=== PATIENT | female | born 1960 | race Caucasian/White ===

== ENCOUNTER → 2019-07-03 12:42 | Outpatient (BNVA) | payer MEDICARE, SELFPAY | PROVIDERS: Family Provider Family Medicine; PCP Family Medicine; Visit Provider Internal Medicine Rheumatology | DX: M45.9 Ankylosing spondylitis of unspecified sites in spine (principal); Z79.899 Other long term (current) drug therapy; M17.9 Osteoarthritis of knee, unspecified; M46.1 Sacroiliitis, not elsewhere classified | CPT/HCPCS: 99214 ==

== ENCOUNTER → 2019-10-03 13:16 | Outpatient (BNVA) | payer MEDICARE, SELFPAY | PROVIDERS: Family Provider Family Medicine; PCP Family Medicine; Visit Provider Internal Medicine Rheumatology | DX: M45.0 Ankylosing spondylitis of multiple sites in spine (principal); Z79.899 Other long term (current) drug therapy; M17.0 Bilateral primary osteoarthritis of knee; M46.1 Sacroiliitis, not elsewhere classified | CPT/HCPCS: 36415; 80076; 82565; 85025; 85651; 86140; 99214 ==

== ENCOUNTER 2019-10-11 09:36 | Outpatient (CLI) | payer MEDICARE, SELFPAY ==
--- NOTE | 2019-10-11 09:45 | XR_ITS ---
WS: [id number] XR KUB 10136 REASON FOR EXAM: RENAL CALCULUS FINDINGS: Considerable fecal stasis identified throughout the colon. The renal shadows are poorly see n no definite stones were seen. There is no definite stones in the area of the ureters. The urinary bladder area show no abnormalities. XR/XR KUB 58639 IMPRESSION: Marked fecal stasis No radiographic evidence of calculi.
== END 2019-10-11 09:37 | disposition home or self-care (01) ==
LOC: RAD 09:42
PROVIDERS: PCP Family Medicine; Visit Provider Urology
DX: N20.0 Calculus of kidney (principal)
CPT/HCPCS: 74018

== ENCOUNTER 2019-11-16 19:42 | Emergency (ER) | payer MEDICARE, SELFPAY ==
[2019-11-16 19:51] VITALS: BP 194/97; PULSE 76; RESP 14; TEMP 36.2; O2SAT 98; BMI 24.4
--- NOTE | 2019-11-16 19:57 | ED_ITS ---
HPI - Headache General: Chief Complaint: Headache Stated Complaint: n/v; h/a Time Seen by Provider: 11/16/19 19:57 Source: patient Mode of arrival: ambulatory Limitations: no limitations History of Present Illness: HPI Narrative: Patient comes in with onset of headache approximately 2 hours ago followed by persistent nausea and vomiting. Patient has a history of migraines which this is similar to. Patient appears mildly unwell. Patient appears in mild to moderate pain. Associated symptoms: Reports nausea and vomiting Review of Systems General: Reports: 10 or more systems reviewed and unremarkable except in HPI a nd below GI: Reports: nausea, vomiting and other (Bile in vomit) Neuro: Reports: headache(s) PFSH ED PFSH: Medical History (Updated 11/16/19 @ 22:21 by NARA Noe) Ankylosing spondylitis Arthritis of knee Breast cancer 2008 Chronic cystitis Diabetes H/O renal calculi High risk medication use Immunization counseling Osteoarthritis Urolithiasis Surgical History H/O mastectomy H/O repair of left rotator cuff History of cholecystectomy History of extraction of renal calculus Previous section Family History Other Ankylosing spondylitis Diabetes Hypertension Lupus Rheumatoid arthritis Stroke Social History Smoking and tobacco status: never smoked Alcohol intake: never Adopted: No Caregiver/support person: No Lives independently: No Household members: spouse Marital status: Current occupational status: retired History of recent travel: No Current gender identity: Female Physical Exam Const: COMMON NORMALS: no acute distress and patient oriented x3 GENERAL A PPEARANCE: cooperative HENMT: COMMON NORMALS: normocephalic and Normal external nose present HEAD & SCALP: normal to inspection and normocephalic NOSE: Normal external nose present Eye: GENERAL EYE: appearance normal, both eyes and all related structures Neck/C-Spine: COMMON NORMALS: full ROM Chest: COMMONS NORMALS: normal inspection of the chest Resp: COMMON NORMALS: normal respiratory effort EFFORT & INSPECTION: Yes able to speak in complete sentences Cardio: COMMON NORMALS: regular rate and regular rhythm RATE: regular rate RHYTHM: regular rhythm GI: COMMON NORMALS: non-tender Back/Pelvis: COMMON NORMALS: thoracic and lumbar spine normal to inspection Extremity: COMMON NORMALS: normal to inspection Neuro: COMMON NORMALS: patient oriented x3 and moves all extremities Psych: COMMON NORMALS: mental status grossly normal and cooperative Skin: COMMON NORMALS: no rashes or lesions noted GENERAL SKIN EXAM: no rashes or lesions noted Course ED course: 2044, patient reports much improvement of symptoms, resting well, IVF continue will reassess when fluids are complete, plan to d/c after fluid bolus. wjw Vital Signs: Vital signs: Vital Signs Temperature 97.2 F L 11/16/19 19:51 Pulse Rate 76 11/16/19 19:51 Respiratory Rate 14 11/16/19 19:51 Blood Pressure 194/97 11/16/19 19:51 Pulse Oximetry 98 11/16/19 19:51 MDM - Headache MDM Narrative: Medical decision making narrative: Patient comes in today for complaints of headache with nausea and vomiting. Patient reports history of migraines with similar symptoms. Exam notes patient appears mildly unwell. Patient does have bilious vomit. Vital signs are normal except for elevated blood pressure. Differential diagnosis includes but not limited to dehydration, migraine headache, electrolyte imbalance, gastritis. Laboratory values noted white count of 11,000, creatinine was 1.3, potassium was 2.8, glucose was 270. Patient was hydrated with 1 L of IV fluids, given 40 mEq of potassium p.o., and medicated with Reglan 10 mg IV push and 25 mg of Benadryl IV push. Patient had improvement in headache and was monitored to ensure that p.o. potassium stayed down. Patient reports understanding of care plan and need for follow-up or return to the emergency room for worsening symptoms. Lab Data: Labs: Lab Results 11/16/19 11/16/19 Range/Units 20:00 20:00 WBC 11.2 H (4.0-10.0) 10^3/ uL RBC 4.90 (4.1-5.3) 10^6/u L Hgb 14.7 (11.5-15.3) g/dL Hct 44.2 (37.0-47.0) % MCV 90.2 (81-99) fL MCH 30.0 (28.0-34.0) pg MCHC 33.3 (30.0-36.0) g/dL RDW 12.6 (12.1-15.1) % Plt Count 334 (130-400) 10^3/c mm MPV 10.5 H (7.4-10.4) fL Neut % (Auto) 48.9 % Lymph % (Auto) 40.9 % [place] % (Auto) 7.8 % Eos % (Auto) 1.7 % Baso % (Auto) 0.4 % Neut # (Auto) 5.48 (1.8-7.7) 10^3/u L Lymph # (Auto) 4.6 (0.8-4.8) 10^3/u L [place] # (Auto) 0.9 (0.2-0.9) 10^3/u L Eos # (Auto) 0.2 (0.0-0.8) 10^3/u L Baso # (Auto) 0.1 (0.0-0.1) 10^3/u L Nucleated RBC % (a uto) 0 % Nucleated RBCs # 0.0 /100WBC Sodium 140 (136-145) mmol/L Potassium 2.8 L* (3.5-5.1) mmol/L Chloride 93 L (98-107) mmol/L Carbon Dioxide 26 (22-29) mmol/L Anion Gap 23.8 H (5-19) BUN 8 (8-23) mg/dL Creatinine 1.3 H (0.5-0.9) mg/dL GFR Calculation 41.6 L (90-130) mL/min Glucose 272 H (65-115) mg/dL Calculated Osmolal ity 296 H (285-295) mOsm/k g Calcium 10.5 (8.5-10.5) mg/dL Total Bilirubin 0.6 (0.15-1.2) mg/dL AST 48 H (0-32) U/L ALT 28 (0-33) U/L Alkaline Phosphata se 65 (35-105) IU/L Total Protein 8.7 (6.6-8.7) g/dL Albumin 5.1 (3.5-5.2) g/dL Globulin 3.6 (1.3-4.6) g/dL Discharge Plan Discharge Patient Disposition: Home, Self-Care Clinical Impression: Acute dehydration, Hypokalemia Migraine Qualifiers: Migraine type: unspecified Status migrainosus presence: without status migrainosus Intractability: not intractable Qualified Code(s): G43.909 - Migraine, unspecified, not intractable, without status migrainosus Condition: Stable Prescriptions: No Action cholecalciferol (vitamin D3) 2,000 unit tablet 2,000 unit PO DAILY RF: 0 melatonin 10 mg capsule 10 mg PO DAILY RF: 0 fluticasone propionate [Flonase Allergy Relief] 50 mcg/actuation spray,suspension 1 spray INTRANASAL DAILY RF: 0 fexofenadine-pseudoephedrine [Ariane-D 12 Hour] 60-120 mg tablet extended release 12 hr 1 tab PO Q12H PRNRF: 0 escitalopram oxalate 10 mg tablet 10 mg PO DAILY RF: 0 multivitamin Capsule 1 cap PO DAILY RF: 0 hydrocodone-acetaminophen 10-325 mg tablet 1 tab PO BID PRNRF: 0 fentanyl 75 mcg/hr patch 72 hour 1 patch TRANSDERMA Q72H RF: 0 levothyroxine 112 mcg tablet 112 mcg PO DAILY RF: 0 metformin 1,000 mg tablet 1,000 mg PO BID RF: 0 ondansetron HCl 8 mg tablet 8 mg PO Q8H RF: 0 metoprolol tartrate 25 mg tablet 25 mg PO BID RF: 0 tizanidine 4 mg tablet 4 mg PO .@night RF: 0 Enbrel SureClick 50 mg/mL (1 mL) pen injector 50 mg SUBCUT .Q7days RF: 0 Ozempic 0.25 mg or 0.5 mg(2 mg/1.5 mL) pen injector 0.25 mg SUBCUT RF: 0 nitrofurantoin monohyd/m-cryst [Macrobid] 100 mg capsule 100 mg PO BID Qty: 28 RF: 3 Discharge Orders: Discharge Order (Routine); Ordered 11/16/19 Ordered By: Marc Abarca Referrals: Felton Newsome MD [Primary Care Provider] - Discharge Diet: Usual diet Discharge Activity: Increase activity as tolerated Patient Instructions: Headache - Migraine (Adult) Activity Restrictions/Additional Instructions: Drink plenty of fluids. Continue with routine medications as directed. Follow- up with primary care for reevaluation for abortive treatment for migraines. Return to the ER as needed. Coding Level of Care Code ED Ship Engineer for Chg Fwd Exam Comprehensive
[2019-11-16 20:14] LABS: Basophils # 0.1 10^3/uL (0.0-0.1); Basophils % 0.4 %; Eosinophils # 0.2 10^3/uL (0.0-0.8); Eosinophils % 1.7 %; Hematocrit 44.2 % (37.0-47.0); Hemoglobin 14.7 g/dL (11.5-15.3); Lymphocytes # 4.6 10^3/uL (0.8-4.8); Lymphocytes % 40.9 %; Mean Corpuscular HGB Conc 33.3 g/dL (30.0-36.0); Mean Corpuscular Volume 90.2 fL (81-99); Mean Platelet Volume 10.5 fL (7.4-10.4); Monocytes # 0.9 10^3/uL (0.2-0.9); Monocytes % 7.8 %; Neutrophils # 5.48 10^3/uL (1.8-7.7); Neutrophils % 48.9 %; Nucleated Red Blood Cells % 0 %; Platelet Count 334 10^3/cmm (130-400); Red Cell Distribution Width 12.6 % (12.1-15.1); White Blood Count 11.2 10^3/uL (4.0-10.0)
[2019-11-16] MEDS: sodium chloride 0.9% 1,000 ML 999 ML IV (20:20)
[2019-11-16] MEDS: dexamethasone 4 mg/mL INJ IVP (20:22)
[2019-11-16] MEDS: metoclopramide 5 mg/mL SDV 2 mL 10 MG IVP (20:27)
[2019-11-16] MEDS: diphenhydrAMINE 50 mg/mL SDV 1mL 25 MG IVP (20:30)
[2019-11-16 20:35] LABS: Alanine Aminotransferase 28 U/L (0-33); Albumin Level 5.1 g/dL (3.5-5.2); Alkaline Phosphatase 65 IU/L (35-105); Anion Gap 23.8 (5-19); Aspartate Amino Transferase 48 U/L (0-32); Blood Urea Nitrogen 8 mg/dL (8-23); Calcium 10.5 mg/dL (8.5-10.5); Carbon Dioxide 26 mmol/L (22-29); Chloride 93 mmol/L (98-107); Globulin 3.6 g/dL (1.3-4.6); Glomerular Filtration Rate 41.6 mL/min (90-130); Glucose 272 mg/dL (65-115); Osmolality Calculated 296 mOsm/kg (285-295); Sodium 140 mmol/L (136-145); Total Bilirubin 0.6 mg/dL (0.15-1.2); Total Protein 8.7 g/dL (6.6-8.7)
[2019-11-16 21:05] LABS: Potassium 2.8 mmol/L (3.5-5.1)
[2019-11-16 21:21] VITALS: BP 178/85; PULSE 82; RESP 18; O2SAT 96
[2019-11-16] MEDS: potassium chloride ER 10 mEq Tablet 40 MEQ PO (21:33)
[2019-11-16] MEDS: ondansetron 2 mg/ML SDV 2 mL 4 MG IVP (21:51)
[2019-11-16 22:38] VITALS: BP 157/78; PULSE 77; RESP 18; O2SAT 97
== END 2019-11-16 22:40 | disposition home or self-care (01) ==
PROVIDERS: Emergency Provider Nurse Practitioner Family; PCP Family Medicine
DX: G43.909 Migraine, unspecified, not intractable, without status migrainosus (principal); E86.0 Dehydration; E87.6 Hypokalemia; Z85.3 Personal history of malignant neoplasm of breast; E11.9 Type 2 diabetes mellitus without complications; Z79.84 Long term (current) use of oral hypoglycemic drugs
CPT/HCPCS: 12345; 80053; 85025; 96361; 96374; 96375; 99283; J1100; J1200; J2405; J2765; J7030

== ENCOUNTER 2019-12-15 13:05 | Emergency (ER) | payer MEDICARE, SELFPAY ==
[2019-12-15 13:09] VITALS: BMI 24.0
[2019-12-15 13:15] VITALS: BP 110/59; PULSE 75; RESP 18; TEMP 36.1; O2SAT 100
--- NOTE | 2019-12-15 13:15 | ECG_ITS ---
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 Measurements Intervals [place] Rate: 72 P: 5 CA: 150 QRS: -7 QRSD: 102 T: 28 QT: 411 QTc: 451 Interpretive Statements SINUS RHYTHM INFERIOR MYOCARDIAL INFARCTION , PROBABLY OLD Compared to ECG 10/24/2015 10:54:44 Myocardial infarct finding now present T-wave abnormality no longer present Electronically Signed On 12-15-2019 13:58:03 CDT by Rebekah Rich M.D. [id number]
--- NOTE | 2019-12-15 13:16 | W.ED.DIZZY ---
HPI - Dizziness General: Chief Complaint: Dizziness Stated Complaint: low bp/dizzy Time Seen by Provider: 12/15/19 13:09 Source: patient Mode of arrival: ambulatory Limitations: no limitations History of Present Illness: HPI Narrative: 59-year-old female who states she is been having issues with her blood pressure for months. She states she is feeling lightheaded today and had a near syncopal event. She states she tried taking her blood pressure at home and it would not register on her machine so she was concerned it was low. Patient's blood pressure here is 110/59. States she has had generalized weakness. She denies any fever or cough. MD elicited complaint: lightheadedness and near syncope Onset (ago): hour(s) Timing: gradual onset Severity: moderate Associated symptoms: Denies chills, nausea or vomiting Review of Systems Const: Denies: fever(s), chills, body aches or change in appetite Eyes: Denies: blurry vision or eye discomfort ENMT: Denies: throat pain or dental pain Card: Reports: pre-syncope Resp: Denies: dyspnea GI: Denies: abdominal pain, nausea, vomiting or diarrhea : Denies: dysuria Musc: Denies: neck pain or back pain Skin/Breast: Denies: rash Neuro: Reports: weakness in extremities Psych: Denies: depression [place]/Lymph: Denies: easy bruising All/Imm: Denies: urticaria PFSH ED PFSH: Medical History Ankylosing spondylitis Arthritis of knee Breast cancer 2007 Chronic cystitis Diabetes H/O renal calculi High risk medication use Immunization counseling Osteoarthritis Urolithiasis Surgical History H/O mastectomy H/O repair of left rotator cuff History of cholecystectomy History of extraction of renal calculus Previous section Family History Other Ankylosing spondylitis Diabetes Hypertension Lupus Rheumatoid arthritis Stroke Social History Smoking and tobacco status: never smoked Alcohol intake: never Adopted: No Caregiver/support person: No Lives independently: No Household members: spouse Marital status: Current occupational status: retired History of recent travel: No Current gender identity: Female Physical Exam Const: COMMON NORMALS: no acute distress, patient oriented x3 and healthy appearing HENMT: COMMON NORMALS: normocephalic and atraumatic HEAD & SCALP: normocephalic and atraumatic Eye: COMMON NORMALS: Equal, round and reactive pupils present and EOMs intact bilaterally PUPIL: Yes Equal, round and reactive pupils present Neck/C-Spine: COMMON NORMALS: full ROM and supple Chest: COMMONS NORMALS: normal inspection of the chest and normal palpation of entire chest wall Resp: COMMON NORMALS: normal respiratory effort, No retractions, No use of accessory muscles and clear to auscultation bilaterally AUSCULTATION: clear to auscultation bilaterally Cardio: COMMON NORMALS: regular rate, regular rhythm and No murmurs present (Cardio) RATE: regular rate RHYTHM: regular rhythm GI: COMMON NORMALS: Normal to inspection, nondistended, normoactive bowel sounds present, Soft to palpation, non-tender and no masses PALPATION: Yes Soft to palpation Extremity: COMMON NORMALS: normal to inspection and full ROM Neuro: COMMON NORMALS: patient oriented x3, moves all extremities and no focal motor deficits Psych: COMMON NORMALS: mental status grossly normal, Normal thought process present and cooperative THOUGHT PROCESS: Normal thought process present Skin: COMMON NORMALS: no rashes or lesions noted and no wounds GENERAL SKIN EXAM: no rashes or lesions noted Course Vital Signs: Vital signs: Vital Signs Temperature 97.9 F 12/15/19 15:28 Pulse Rate 64 12/15/19 15:28 Respiratory Rate 18 12/15/19 15:28 Blood Pressure 139/78 12/15/19 15:28 Pulse Oximetry 97 12/15/19 15:28 MDM - Dizziness Lab Data: Labs: Lab Results 12/15/19 12/15/19 12/15/19 Range/Units 13:40 13:40 13:40 WBC 6.3 (4.0-10.0) 10^3/ uL RBC 4.14 (4.1-5.3) 10^6/u L Hgb 12.0 (11.5-15.3) g/dL Hct 37.8 (37.0-47.0) % MCV 91.3 (81-99) fL MCH 29.0 (28.0-34.0) pg MCHC 31.7 (30.0-36.0) g/dL RDW 12.6 (12.1-15.1) % Plt Count 259 (130-400) 10^3/c mm MPV 10.6 H (7.4-10.4) fL Neut % (Auto) 36.6 % Lymph % (Auto) 48.3 % [place] % (Auto) 10.5 % Eos % (Auto) 3.8 % Baso % (Auto) 0.6 % Neut # (Auto) 2.31 (1.8-7.7) 10^3/u L Lymph # (Auto) 3.0 (0.8-4.8) 10^3/u L [place] # (Auto) 0.7 (0.2-0.9) 10^3/u L Eos # (Auto) 0.2 (0.0-0.8) 10^3/u L Baso # (Auto) 0.0 (0.0-0.1) 10^3/u L Nucleated RBC % (a uto) 0 % Nucleated RBCs # 0.0 /100WBC Sodium 138 (136-145) mmol/L Potassium 3.3 L (3.5-5.1) mmol/L Chloride 98 (98-107) mmol/L Carbon Dioxide 29 (22-29) mmol/L Anion Gap 14.3 (5-19) BUN 6 L (8-23) mg/dL Creatinine 1.2 H (0.5-0.9) mg/dL GFR Calculation 45.7 L (90-130) mL/min Glucose 269 H (65-115) mg/dL Calculated Osmolal ity 291 (285-295) mOsm/k g Calcium 9.5 (8.5-10.5) mg/dL Total Bilirubin 0.4 (0.15-1.2) mg/dL AST 23 (0-32) U/L ALT 13 (0-33) U/L Alkaline Phosphata se 48 (35-105) IU/L Troponin T Baselin e 7 (0-10) ng/L Total Protein 6.9 (6.6-8.7) g/dL Albumin 4.3 (3.5-5.2) g/dL Globulin 2.6 (1.3-4.6) g/dL Imaging Data^: CXR: Radiologist's impression: [address] [address] XRay Report Signed Patient: Yuliya Khan Unit #: [id number] : 1960 Age/Sex: 59 / F ADM Date: 12/15/19 Loc: ER Room/Bed: Attending Dr: Ordering Provider/Ordering MD: Svetlana Quezada MD Date of Service: 12/15/19 Procedure(s): XR chest 1V portable [id number] Accession Number(s): [id number] Report Number: [id number] PROCEDURE INFORMATION: Exam: XR Chest, 1 View Exam date and time: 12/15/2019 1:16 PM Age: 59 years old Clinical indication: Other: Abnormal blood pressure; Prior surgery; Surgery date: 6+ months; Surgery type: Mastectomy; Patient HX: History of breast cancer; Additional info: Cp TECHNIQUE: Imaging protocol: XR of the chest Views: 1 view. COMPARISON: CR Chest 2 views* [id number] 11/18/2017 12:22 PM FINDINGS: Lungs: Unremarkable. No consolidation. Pleural space: Unremarkable. No pleural effusion. No pneumothorax. Heart/Mediastinum: Unremarkable. No cardiomegaly. Bones/joints: Unremarkable. Soft tissues: Status post left mastectomy Other findings: No interval changes are seen compared to prior XR/XR chest 1V portable [id number] IMPRESSION: 1. No acute findings. 2. Status post left mastectomy EKG Data^: EKG 1: Attestation: I personally reviewed and interpreted this EKG as follows: EKG interpretation date: 12/15/19 EKG interpretation time: 13:45 Interpretation: nsr hr [address] or t wave abnormalities qrs 102 qtc 435 EKG 2: Attestation: I personally reviewed and interpreted this EKG as follows: EKG interpretation date: 12/15/19 EKG interpretation time: 14:57 Interpretation: nsr hr [address] or t wave abnormalites qrs 104 qtc 457 patient presents with near syncope along with hypotension. I believe her blood pressure cuff at home is malfunctioning as her blood pressures here have all been normal. Her lab work including a troponin is normal. She has no signs of cardiac cause or pulmonary embolism. Patient is to continue to monitor her blood pressure at home and is to follow-up with primary care doctor in 3 to 5 days. She is to return if worsening. She understands and agrees to plan. Discharge Plan Discharge Patient Disposition: Home Clinical Impression: Near syncope Condition: Stable Prescriptions: No Action cholecalciferol (vitamin D3) 2,000 unit tablet 2,000 unit PO DAILY RF: 0 melatonin 10 mg capsule 10 mg PO DAILY RF: 0 fluticasone propionate [Flonase Allergy Relief] 50 mcg/actuation spray,suspension 1 spray INTRANASAL DAILY RF: 0 fexofenadine-pseudoephedrine [Ariane-D 12 Hour] 60-120 mg tablet extended release 12 hr 1 tab PO Q12H PRN (Reason: Allergy Symptoms) RF: 0 escitalopram oxalate 10 mg tablet 10 mg PO DAILY RF: 0 multivitamin Capsule 1 cap PO DAILY RF: 0 hydrocodone-acetaminophen 10-325 mg tablet 1 tab PO BID PRN (Reason: Pain) RF: 0 fentanyl 75 mcg/hr patch 72 hour 1 patch TRANSDERMA Q72H RF: 0 levothyroxine 112 mcg tablet 112 mcg PO DAILY RF: 0 metformin 1,000 mg tablet 1,000 mg PO BID RF: 0 ondansetron HCl 8 mg tablet 8 mg PO Q8H RF: 0 metoprolol tartrate 25 mg tablet 12.5 mg PO TID RF: 0 tizanidine 4 mg tablet 4 mg PO .@night RF: 0 Enbrel SureClick 50 mg/mL (1 mL) pen injector 50 mg SUBCUT .Q7days RF: 0 Ozempic 0.25 mg or 0.5 mg(2 mg/1.5 mL) pen injector 0.5 mg SUBCUT Q7D RF: 0 nitrofurantoin monohyd/m-cryst [Macrobid] 100 mg capsule 100 mg PO BID Qty: 28 RF: 3 Discharge Orders: Discharge Order (Routine); Ordered 12/15/19 Ordered By: Svetlana Quezada Referrals: Felton Newsome MD [Primary Care Provider] - 1-3 days Discharge Diet: Advance as tolerated Discharge Activity: Resume usual activity Patient Instructions: Near Syncope (ED) Discharge Date/Time: 12/15/19 15:31 Coding Level of Care Code ED Railway Station Manager for Chg Fwd Exam Comprehensive
[2019-12-15 13:40] VITALS: BP 115/65; PULSE 82; RESP 16; O2SAT 100
[2019-12-15] MEDS: sodium chloride 0.9% 1,000 ML 999 ML IV (13:44)
[2019-12-15 13:59] LABS: Basophils % 0.6 %; Eosinophils # 0.2 10^3/uL (0.0-0.8); Eosinophils % 3.8 %; Hematocrit 37.8 % (37.0-47.0); Lymphocytes % 48.3 %; Mean Corpuscular HGB Conc 31.7 g/dL (30.0-36.0); Mean Corpuscular Volume 91.3 fL (81-99); Mean Platelet Volume 10.6 fL (7.4-10.4); Monocytes # 0.7 10^3/uL (0.2-0.9); Monocytes % 10.5 %; Neutrophils # 2.31 10^3/uL (1.8-7.7); Neutrophils % 36.6 %; Nucleated Red Blood Cells % 0 %; Platelet Count 259 10^3/cmm (130-400); Red Blood Count 4.14 10^6/uL (4.1-5.3); Red Cell Distribution Width 12.6 % (12.1-15.1); White Blood Count 6.3 10^3/uL (4.0-10.0)
[2019-12-15 14:22] LABS: Alanine Aminotransferase 13 U/L (0-33); Albumin Level 4.3 g/dL (3.5-5.2); Alkaline Phosphatase 48 IU/L (35-105); Anion Gap 14.3 (5-19); Aspartate Amino Transferase 23 U/L (0-32); Blood Urea Nitrogen 6 mg/dL (8-23); Calcium 9.5 mg/dL (8.5-10.5); Carbon Dioxide 29 mmol/L (22-29); Chloride 98 mmol/L (98-107); Globulin 2.6 g/dL (1.3-4.6); Glomerular Filtration Rate 45.7 mL/min (90-130); Glucose 269 mg/dL (65-115); Osmolality Calculated 291 mOsm/kg (285-295); Potassium 3.3 mmol/L (3.5-5.1); Sodium 138 mmol/L (136-145); Total Bilirubin 0.4 mg/dL (0.15-1.2); Total Protein 6.9 g/dL (6.6-8.7)
[2019-12-15 14:24] LABS: Troponin(5th) Baseline 7 ng/L (0-10)
--- NOTE | 2019-12-15 15:15 | ECG_ITS ---
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 Measurements Intervals [place] Rate: 64 P: 26 CT: 194 QRS: -10 QRSD: 104 T: 29 QT: 447 QTc: 464 Interpretive Statements SINUS RHYTHM INFERIOR MYOCARDIAL INFARCTION , PROBABLY OLD [40+ ms Q WAVE AND/OR ST/T ABNORMALITY IN II/aVF] Compared to ECG 12/15/2019 13:43:59 No significant changes Electronically Signed On 12-16-2019 9:09:23 CDT by Rebekah Rich M.D. [id number]
[2019-12-15 15:28] VITALS: BP 139/78; PULSE 64; RESP 18; TEMP 36.6; O2SAT 97
== END 2019-12-15 15:31 | disposition home or self-care (01) ==
PROVIDERS: Emergency Provider Emergency Medicine; PCP Family Medicine
DX: R55 Syncope and collapse (principal); Z85.3 Personal history of malignant neoplasm of breast; E11.9 Type 2 diabetes mellitus without complications
CPT/HCPCS: 12345; 71045; 80053; 84484; 85025; 93005; 96360; 99283; 99284; J7030

== ENCOUNTER → 2020-02-20 10:17 | Outpatient (BNVA) | payer MEDICARE, SELFPAY | PROVIDERS: PCP Family Medicine; Referring Provider Internal Medicine Rheumatology; Visit Provider Internal Medicine Rheumatology | DX: M45.0 Ankylosing spondylitis of multiple sites in spine (principal); M17.0 Bilateral primary osteoarthritis of knee; Z79.899 Other long term (current) drug therapy; Z79.891 Long term (current) use of opiate analgesic | CPT/HCPCS: 99214 ==

== ENCOUNTER 2020-04-10 09:14 | Outpatient (CLI) | payer MEDICARE, SELFPAY ==
--- NOTE | 2020-04-10 09:37 | XR_ITS ---
WS: [id number] KUB, 04/10/2020 Clinical Data: UROLITHIASIS Comparison: KUB, 10/11/2019. Findings: No abnormal intraabdominal masses or calcifications are seen. There is no dilatated small bowel or ev idence of obstruction. The changes of ankylosing spondylitis of the lumbar spine and SI joints can be seen. There is moderat e fecal material throughout the colon. XR/XR KUB [id number] Impression: Negative KUB.
== END 2020-04-10 09:15 | disposition home or self-care (01) ==
PROVIDERS: PCP Family Medicine; Visit Provider Urology
DX: N20.9 Urinary calculus, unspecified (principal)
CPT/HCPCS: 74018; 81003

== ENCOUNTER → 2020-07-03 13:48 | Outpatient (BNVA) | payer MEDICARE, SELFPAY | PROVIDERS: PCP Family Medicine; Visit Provider Internal Medicine Rheumatology | DX: M45.0 Ankylosing spondylitis of multiple sites in spine (principal); Z79.899 Other long term (current) drug therapy; M19.90 Unspecified osteoarthritis, unspecified site | CPT/HCPCS: 36415; 80076; 82565; 85025; 86140 ==

== ENCOUNTER → 2020-10-01 14:20 | Outpatient (BNVA) | payer MEDICARE, SELFPAY | PROVIDERS: PCP Family Medicine; Visit Provider Internal Medicine Rheumatology | DX: M45.0 Ankylosing spondylitis of multiple sites in spine (principal); Z79.899 Other long term (current) drug therapy; M17.0 Bilateral primary osteoarthritis of knee; Z79.891 Long term (current) use of opiate analgesic | CPT/HCPCS: 36415; 80076; 82565; 85025; 86140; 99214 ==

== ENCOUNTER → 2021-01-05 12:58 | Outpatient (BNVA) | payer MEDICARE, SELFPAY | PROVIDERS: PCP Family Medicine; Visit Provider Internal Medicine Rheumatology | DX: Z79.899 Other long term (current) drug therapy (principal); M45.0 Ankylosing spondylitis of multiple sites in spine | CPT/HCPCS: 36415; 80076; 82565; 85025; 86140 ==

== ENCOUNTER → 2021-01-15 13:55 | Outpatient (BNVA) | payer MEDICARE, SELFPAY | PROVIDERS: PCP Family Medicine; Visit Provider Internal Medicine Rheumatology | DX: M45.0 Ankylosing spondylitis of multiple sites in spine (principal); Z79.899 Other long term (current) drug therapy; M17.0 Bilateral primary osteoarthritis of knee; Z71.89 Other specified counseling; F11.90 Opioid use, unspecified, uncomplicated | CPT/HCPCS: 99214 ==

== ENCOUNTER 2021-04-13 09:36 | Outpatient (CLI) | payer MEDICARE, SELFPAY ==
--- NOTE | 2021-04-13 09:45 | XR_ITS ---
WS: [id number] Exam: XR KUB [id number] Date/Time of Exam: 04/13/2021 9:46 AM Reason For Exam: urolithiasis No bowel obstruction or free air. 1 mm calcification superimposes the lower pole the right kidney and may represent a renal stone. No sign of organ enlargement. Thoracolumbar scoliosis. There are bony c hanges in spine and pelvis that may indicate ankylosing spondylitis. XR/XR KUB [id number] IMPRESSION: 1. 1 mm calcification superimposing the lower pole the right kidney and could r epresent a tiny renal calculus. 2. No acute abdominal process. Additional nonacute chronic findings as above.
== END 2021-04-13 09:37 | disposition home or self-care (01) ==
LOC: RAD 09:40
PROVIDERS: PCP Family Medicine; Visit Provider Urology
DX: N20.0 Calculus of kidney (principal)
CPT/HCPCS: 74018; 81003

== ENCOUNTER → 2021-05-20 12:56 | Outpatient (BNVA) | payer MEDICARE, SELFPAY | PROVIDERS: PCP Family Medicine; Visit Provider Internal Medicine Rheumatology | DX: M45.0 Ankylosing spondylitis of multiple sites in spine (principal); M17.0 Bilateral primary osteoarthritis of knee; Z79.899 Other long term (current) drug therapy; Z71.89 Other specified counseling; R29.898 Other symptoms and signs involving the musculoskeletal system | CPT/HCPCS: 99214 ==

== ENCOUNTER 2021-07-29 12:57 | Outpatient (CLI) | payer MEDICARE, SELFPAY ==
--- NOTE | 2021-07-29 13:08 | MM_ITS ---
WS: [id number] Right breast diagnostic 3D tomosynthesis digital mammogram, 07/29/2021 Clinical Data: HX OF BREAST CA;LT MASTECTOMY Comparison: 08/07/2018, 06/25/2015, 03/12/2010. Findings: No spiculated masses nor clustered calcifications are seen. The breast parenchymal pattern shows fibr oglandular tissue. There are no secondary signs of carcinoma. There is a mole marker on the medial as pect of the right breast. MM/[place] [id number] Impression: 1. Negative right breast mammogram. 2. Recommend annual right breast mammogram BIRADS: 1-Negative FOLLOW UP: 1 Year Follow-up The CAD engineering drawings checker was used.
== END 2021-07-29 12:58 | disposition home or self-care (01) ==
PROVIDERS: PCP Family Medicine; Visit Provider Family Medicine
DX: Z85.3 Personal history of malignant neoplasm of breast (principal); Z90.12 Acquired absence of left breast and nipple
CPT/HCPCS: 77061

== ENCOUNTER → 2021-09-07 14:08 | Outpatient (BNVA) | payer MEDICARE, SELFPAY | PROVIDERS: PCP Family Medicine; Visit Provider Internal Medicine Rheumatology | DX: M45.0 Ankylosing spondylitis of multiple sites in spine (principal); E11.9 Type 2 diabetes mellitus without complications; Z71.89 Other specified counseling; M17.10 Unilateral primary osteoarthritis, unspecified knee; Z79.899 Other long term (current) drug therapy; Z79.891 Long term (current) use of opiate analgesic; Z86.15 Personal history of latent tuberculosis infection | CPT/HCPCS: 99214 ==

== ENCOUNTER → 2021-09-23 15:03 | Outpatient (BNVA) | payer MEDICARE, SELFPAY | PROVIDERS: PCP Family Medicine; Referring Provider Internal Medicine Rheumatology; Visit Provider Internal Medicine | DX: E11.9 Type 2 diabetes mellitus without complications (principal); E78.2 Mixed hyperlipidemia; E03.9 Hypothyroidism, unspecified; N39.0 Urinary tract infection, site not specified; Z79.4 Long term (current) use of insulin | CPT/HCPCS: 99204 ==

== ENCOUNTER → 2021-10-12 13:42 | Outpatient (BNVA) | payer MEDICARE, SELFPAY | PROVIDERS: PCP Family Medicine; Visit Provider Internal Medicine | DX: E11.9 Type 2 diabetes mellitus without complications (principal); E78.2 Mixed hyperlipidemia; N39.0 Urinary tract infection, site not specified; E03.9 Hypothyroidism, unspecified; Z78.9 Other specified health status; Z79.4 Long term (current) use of insulin | CPT/HCPCS: 36415; 80053; 80061; 99214 ==

== ENCOUNTER → 2021-12-24 13:49 | Outpatient (BNVA) | payer MEDICARE, SELFPAY | PROVIDERS: PCP Family Medicine; Visit Provider Internal Medicine | DX: E11.649 Type 2 diabetes mellitus with hypoglycemia without coma (principal); E03.9 Hypothyroidism, unspecified; E78.2 Mixed hyperlipidemia; N39.0 Urinary tract infection, site not specified; Z78.9 Other specified health status; Z79.4 Long term (current) use of insulin; Z79.84 Long term (current) use of oral hypoglycemic drugs | CPT/HCPCS: 99214 ==

== ENCOUNTER 2021-12-30 08:27 | Outpatient (CLI) | payer MEDICARE, SELFPAY ==
--- NOTE | 2021-12-30 08:36 | XR_ITS ---
WS: [id number] KUB, AP view, 12/30/2021 Clinical Data: STONES Comparison: KUB, 04/13/2021. Findings: No abnormal intraabdominal masses or calcifications are seen. There is no dilatated small bowel or ev idence of obstruction. There is fecal material throughout the colon. There is ankylosing spondylitis of the SI joints and rema mbar spine. XR/XR KUB [id number] Impression: Negative KUB.
== END 2021-12-30 08:28 | disposition home or self-care (01) ==
LOC: RAD 08:28
PROVIDERS: PCP Family Medicine; Visit Provider Urology
DX: N20.9 Urinary calculus, unspecified (principal); N39.0 Urinary tract infection, site not specified
CPT/HCPCS: 74018; 81003; 99213

== ENCOUNTER → 2022-01-07 12:53 | Outpatient (BNVA) | payer MEDICARE, SELFPAY | PROVIDERS: PCP Family Medicine; Visit Provider Internal Medicine Rheumatology | DX: M45.0 Ankylosing spondylitis of multiple sites in spine (principal); Z79.899 Other long term (current) drug therapy; Z71.89 Other specified counseling; M17.10 Unilateral primary osteoarthritis, unspecified knee; Z79.891 Long term (current) use of opiate analgesic; Z86.15 Personal history of latent tuberculosis infection | CPT/HCPCS: 99214 ==

== ENCOUNTER → 2022-04-06 12:15 | Outpatient (BNVA) | payer MEDICARE, SELFPAY | PROVIDERS: PCP Family Medicine; Visit Provider Internal Medicine | DX: E11.9 Type 2 diabetes mellitus without complications (principal); E03.9 Hypothyroidism, unspecified; I10 Essential (primary) hypertension; R11.0 Nausea; Z79.4 Long term (current) use of insulin; Z79.899 Other long term (current) drug therapy; Z79.85 Long-term (current) use of injectable non-insulin antidiabetic drugs; E78.2 Mixed hyperlipidemia; N39.0 Urinary tract infection, site not specified; Z78.9 Other specified health status | CPT/HCPCS: 36415; 80053; 80061; 83036; 84439; 84443; 99214 ==

== ENCOUNTER 2022-04-13 13:56 | Outpatient (CLI) | payer MEDICARE, SELFPAY ==
--- NOTE | 2022-04-13 14:02 | XR_ITS ---
WS: [id number] EXAMINATION: XR KUB [id number] REASON FOR EXAM: Urolithiasis COMPARISON: 12/30/2021 ORDER DATE: 04/13/2022 2:15 PM FINDINGS: There is a nonspecific colonic gas pattern with scattered fecal content and gas. There is no sign of significant small bowel dilation. No pathologic abdominal calcification is seen. Ankylosing spondyl itis changes of the spine with SI joint fusion noted bilaterally. XR/XR KUB [id number] IMPRESSION: No change from previous
== END 2022-04-13 13:57 | disposition home or self-care (01) ==
PROVIDERS: PCP Family Medicine; Visit Provider Urology
DX: N20.9 Urinary calculus, unspecified (principal); N30.20 Other chronic cystitis without hematuria
CPT/HCPCS: 74018; 81003; 99213

== ENCOUNTER → 2022-04-14 13:44 | Outpatient (BNVA) | payer MEDICARE, SELFPAY | PROVIDERS: PCP Family Medicine; Visit Provider Internal Medicine Rheumatology | DX: M45.0 Ankylosing spondylitis of multiple sites in spine (principal); Z79.899 Other long term (current) drug therapy; Z71.89 Other specified counseling; M17.0 Bilateral primary osteoarthritis of knee; Z86.15 Personal history of latent tuberculosis infection; Z79.891 Long term (current) use of opiate analgesic | CPT/HCPCS: 99214 ==

== ENCOUNTER → 2022-07-06 12:57 | Outpatient (BNVA) | payer MEDICARE, SELFPAY | PROVIDERS: PCP Family Medicine; Visit Provider Internal Medicine | DX: E11.9 Type 2 diabetes mellitus without complications (principal); E03.9 Hypothyroidism, unspecified; E78.2 Mixed hyperlipidemia; N39.0 Urinary tract infection, site not specified; Z79.4 Long term (current) use of insulin; Z79.899 Other long term (current) drug therapy; Z79.890 Hormone replacement therapy; Z78.9 Other specified health status | CPT/HCPCS: 99214 ==

== ENCOUNTER → 2022-07-21 13:50 | Outpatient (BNVA) | payer MEDICARE, SELFPAY | PROVIDERS: PCP Family Medicine; Visit Provider Internal Medicine Rheumatology | DX: M45.0 Ankylosing spondylitis of multiple sites in spine (principal); Z79.899 Other long term (current) drug therapy; Z71.89 Other specified counseling; M17.0 Bilateral primary osteoarthritis of knee | CPT/HCPCS: 99214 ==

== ENCOUNTER 2022-07-21 14:39 | Outpatient (CLI) | payer MEDICARE, SELFPAY | END 2022-07-21 14:40 | disposition home or self-care (01) | PROVIDERS: PCP Family Medicine; Visit Provider Internal Medicine Rheumatology | DX: M45.0 Ankylosing spondylitis of multiple sites in spine (principal); Z79.899 Other long term (current) drug therapy | CPT/HCPCS: 36415; 80076; 85025; 86140; 99214 ==

== ENCOUNTER 2022-08-18 11:14 | Outpatient (CLI) | payer MEDICARE, SELFPAY ==
[2022-08-18 12:35] LABS: Estmated Average Glucose 171; Hemoglobin A1C 7.6 % (4.0-6.0)
[2022-08-18 12:58] LABS: Alanine Aminotransferase 17 U/L (0-33); Albumin Level 3.6 g/dL (3.5-5.2); Alkaline Phosphatase 97 U/L (35-105); Anion Gap 14.4 (5-19); Aspartate Amino Transferase 26 U/L (0-32); Blood Urea Nitrogen 11 mg/dL (8-23); Calcium 8.7 mg/dL (8.5-10.5); Carbon Dioxide 24 mmol/L (22-29); Chloride 107 mmol/L (98-107); Cholesterol 152 mg/dL (0-200); Free T4 Free Thyroxine 1.54 ng/dL (0.82-1.77); Globulin 3.7 g/dL (1.3-4.6); Glomerular Filtration Rate 55.8 mL/min (90-130); Glucose 169 mg/dL (65-115); HDL Cholesterol 40 mg/dL (60-100); LDL Cholesterol Calculated 73 mg/dL (50-129); LDL HDL Ratio 1.83 RATIO (0.00-3.22); Osmolality Calculated 295 mOsm/kg (285-295); Potassium 4.4 mmol/L (3.5-5.1); Sodium 141 mmol/L (136-145); Thyroid Stimulating Hormone 1.29 uIU/mL (0.27-4.20); Total Bilirubin 0.3 mg/dL (0.15-1.2); Total Protein 7.3 g/dL (6.6-8.7); Triglycerides 193 mg/dL (0-150)
[2022-08-18 13:01] LABS: Creatinine Urine, Random 360 mg/dL (28-217); Microalbum Creatinine Ratio Ur 22 mg/dL (0-20); Microalbumin Random Urine 8 ug/dL (0-20)
[2022-08-19 10:00] LABS: T3 Total 91 ng/dL (76-181)
== END 2022-08-18 11:15 | disposition home or self-care (01) ==
PROVIDERS: PCP Family Medicine; Visit Provider Internal Medicine
DX: E11.9 Type 2 diabetes mellitus without complications (principal); Z79.4 Long term (current) use of insulin; Z79.899 Other long term (current) drug therapy; E03.9 Hypothyroidism, unspecified
CPT/HCPCS: 36415; 80053; 80061; 82044; 83036; 84439; 84443; 84480

== ENCOUNTER 2022-09-19 21:20 | Emergency (ER) | payer MEDICARE, SELFPAY ==
[2022-09-19 21:30] VITALS: BP 214/92; PULSE 73; RESP 20; TEMP 36.6; O2SAT 96; BMI 28.5
--- NOTE | 2022-09-19 21:45 | XRR_ITS ---
PROCEDURE INFORMATION: Exam: XR Chest Exam date and time: 09/19/2022 9:53 PM Age: 62 years old Clinical indication: Other: HTN TECHNIQUE: Imaging protocol: Radiologic exam of the chest. Views: 1 view. COMPARISON: CR XR chest 1V portable [id number] 12/15/2019 1:43 PM FINDINGS: Lungs: Unremarkable. No consolidation. Pleural spaces: Unremarkable. No pleural effusion. No pneumothorax. Heart/Mediastinum: Unremarkable. No cardiomegaly. Bones/joints: Chronic left shoulder osteoarthritis. XR/XR chest 1V portable [id number] IMPRESSION: No change, unremarkable
--- NOTE | 2022-09-19 21:45 | CTR_ITS ---
PROCEDURE INFORMATION: Exam: CT Head Without Contrast Exam date and time: 09/19/2022 9:57 PM Age: 62 years old Clinical indication: Pain; Headache; Patient HX: GARDNER with BP of 214 systolic. ; Additional info: HTN with GARDNER TECHNIQUE: Imaging protocol: Computed tomography of the head without contrast. Radiation optimization: All CT scans at this facility use at least one of these dose optimization techniques: automated exposure control; mA and/or kV adjustment per patient size (includes targeted exams where dose is matched to clinical indication); or iterative reconstruction. REPORTING DATA: Count of CT and Cardiac NM exams in prior 12 months: This patient has received 0 known CTs and 0 known cardiac nuclear medicine studies in the 12 months prior to the current study. COMPARISON: No relevant prior studies available. RADIATION DOSE METRICS: Total DLP (mGy-cm): 969.59 FINDINGS: Brain: Normal. No hemorrhage. Unremarkable white matter. No mass effect. Cerebral ventricles: No ventriculomegaly. Paranasal sinuses: Visualized sinuses are unremarkable. No fluid levels. Mastoid air cells: Visualized mastoid air cells are well aerated. Bones/joints: Unremarkable. No acute fracture. Soft tissues: Unremarkable. CT/CT head wo con* [id number] IMPRESSION: No acute intracranial abnormality.
--- NOTE | 2022-09-19 21:56 | ED_ITS ---
Documented by User: Sathya Bridges 09/19/22 23:02 HPI - Headache General: Chief Complaint: Headache Stated Complaint: Blood Pressure High\Headache\Dizzy Time Seen by Provider: 09/19/22 21:28 History of Present Illness: 62-year-old female presents emergency department chief complaint of a frontal headache with extremely high blood pressure patient reports that she has been off her fentanyl patch about a week due to pharmacy debacle which her having pro blems getting her prescription filled she is on this for chronic arthritis as well as ankylosing spondylitis the back patient reports her last 1 week her doctor has been changing management her blood pressure medications reports of a known history of significant high elevated blood pressure she does not recall any known history of [place] cardiac issues that being said she does not recall any recent swelling or edema in her legs. The patient she does report she did took some her medications prior to arrival including her lisinopril as well as her metoprolol. Patient does endorse having a frontal headache at this time she reports taking that prior to arrival with mild nausea the patient does not report having a prior history of any other associated symptoms. Associated symptoms: Deny chest pain, fever(s), malaise, nausea, rash or vomiting Review of Systems General: Reports: 10 or more systems reviewed and unremarkable except in HPI and below Const: Denies: fever(s), chills, fatigue or malaise Eyes: Denies: change in vision or blurry vision Card: Denies: chest pain or palpitations Resp: Denies: dyspnea or productive cough GI: Denies: abdominal pain, nausea or vomiting : Denies: flank pain Musc: Denies: extremity pain or extremity swelling Skin/Breast: Denies: rash or pruritus Neuro: Reports: headache(s) Psych: Denies: anxiety or depression Wesley/Lymph: Denies: easy bleeding All/Imm: Denies: urticaria, throat swelling or facial swelling PFSH ED PFSH: Medical History Ankylosing spondylitis Arthritis of knee Breast cancer 2008 Chronic cystitis Diabetes Diabetes mellitus type 2, uncontrolled H/O renal calculi High risk medication use Immunization counseling Inflammatory arthritis Osteoarthritis Urolithiasis Surgical History H/O mastectomy H/O repair of left rotator cuff History of cholecystectomy History of extraction of renal calculus Previous section Family History Other Ankylosing spondylitis Diabetes Hypertension Lupus Rheumatoid arthritis Stroke Social History Smoking and tobacco status: never smoked Alcohol intake: never Adopted: No Caregiver/support person: No Lives independently: No Household members: spouse Marital status: Current occupational status: retired Current gender identity: Female Physical Exam Narrative: EXAM NARRATIVE: Patient appears in mild distress on exam due to her headache no focal neurodeficit appreciated GCS of 15 NIH of 0 Const: COMMON NORMALS: no acute distress, patient oriented x3 and healthy ap pearing HENMT: COMMON NORMALS: normocephalic and atraumatic HEAD & SCALP: normocephalic and atraumatic Eye: COMMON NORMALS: Equal, round and reactive pupils present and EOMs intact bilaterally PUPIL: Yes Equal, round and reactive pupils present Neck/C-Spine: COMMON NORMALS: full ROM, supple and no JVD Lymph: LYMPHATIC: no lymphadenopathy noted Chest: COMMONS NORMALS: normal inspection of the chest and normal palpation of entire chest wall Resp: COMMON NORMALS: normal respiratory effort, No retractions and clear to auscultation bilaterally EFFORT & INSPECTION: Yes able to speak in complete sentences and Yes symmetric chest movement AUSCULTATION: clear to auscul tation bilaterally Cardio: COMMON NORMALS: no JVD, regular rate and regular rhythm RATE: regular rate RHYTHM: regular rhythm GI: COMMON NORMALS: Normal to inspection, nondistended, normoactive bowel sounds present, Soft to palpation and non-tender INSPECTION: Yes normal to inspection PALPATION: Yes Soft to palpation : COMMON NORMALS: Yes no CVA tenderness BLADDER/KIDNEY EXAM: Yes no CVA tenderness Back/Pelvis: COMMON NORMALS: no CVA tenderness Extremity: COMMON NORMALS: normal to inspection and full ROM Neuro: COMMON NORMALS: patient oriented x3, CN's II-XII intact bilaterally, moves all extremities and no focal motor deficits Psych: COMMON NORMALS: mental status grossly normal, Normal thought process present, cooperative and normal affect THOUGHT PROCESS: Normal thought process present Skin: COMMON NORMALS: no rashes or lesions noted GENERAL SKIN EXAM: no rashes or lesions noted Course Vital Signs: Vital signs: Vital Signs Temperature 97.8 F 09/19/22 21:30 Pulse Rate 76 09/19/22 23:15 Respiratory Rate 16 09/19/22 23:15 Blood Pressure 168/89 09/19/22 23:15 Pulse Oximetry 98 09/19/22 23:15 Oxygen Delivery Me thod Room Air 09/19/22 21:30 MDM - Headache Medical Decision Making Due to the patient's symptoms and condition IV status basic lab work and imaging will be obtained we will continue to follow we will continue to monitor the patient's blood pressure and intervene after the next 45 minutes of good readings to see with the patient currently resolved 2. We will continue to follow this patient was signed to Dr. Pineda at 2300 anticipate discharge home pending 2-hour troponin as well as improvement of the patient's blood pressure and symptoms. Lab Data 09/19/22 21:37 09/19/22 21:37 Radiology Impressions Chest X-Ray 09/19/22 21:45 IMPRESSION: No change, unremarkable Head CT 09/19/22 21:45 IMPRESSION: No acute intracranial abnormality. Laboratory Results WBC 9.6 10^3/uL (4.0-10.0) 09/19/22 21:37 RBC 4.35 10^6/uL (4.1-5.3) 09/19/22 21:37 Hgb 11.9 g/dL (11.5-15.3) 09/19/22 21:37 Hct 38.6 % (37.0-47.0) 09/19/22 21:37 MCV 88.7 fl (81-99) 09/19/22 21:37 MCH 27.4 pg (28.0-34.0) L 09/19/22 21:37 MCHC 30.8 g/dL (30.0-36.0) 09/19/22 21:37 RDW 14.1 % (12.1-15.1) 09/19/22 21:37 Plt Count 218 10^3/cmm (130-400) 09/19/22 21:37 MPV 11.1 fL (7.4-10.4) H 09/19/22 21:37 Neut % (Auto) 79.4 % 09/19/22 21:37 Lymph % (Auto) 11.5 % 09/19/22 21:37 [place] % (Auto) 7.2 % 09/19/22 21:37 Eos % (Auto) 1.1 % 09/19/22 21:37 Baso % (Auto) 0.4 % 09/19/22 21:37 Neut # (Auto) 7.64 10^3/uL (1.8-7.7) 09/19/22 21:37 Lymph # (Auto) 1.1 10^3/uL (0.8-4.8) 09/19/22 21:37 [place] # (Auto) 0.7 10^3/uL (0.2-0.9) 09/19/22 21:37 Eos # (Auto) 0.1 10^3/uL (0.0-0.8) 09/19/22 21:37 Baso # (Auto) 0.0 10^3/uL (0.0-0.1) 09/19/22 21:37 Nucleated RBC % (auto) 0 % 09/19/22 21:37 Nucleated RBCs # 0.0 /100WBC 09/19/22 21:37 Sodium 135 mmol/L (136-145) L 09/19/22 21:37 Potassium 4.0 mmol/L (3.5-5.1) 09/19/22 21:37 Chloride 96 mmol/L (98-107) L 09/19/22 21:37 Carbon Dioxide 23 mmol/L (22-29) 09/19/22 21:37 Anion Gap 20.0 (5-19) H 09/19/22 21:37 BUN 13 mg/dL (8-23) 09/19/22 21:37 Creatinine 0.9 mg/dL (0.5-0.9) 09/19/22 21:37 GFR Calculation 63.0 mL/min (90-130) L 09/19/22 21:37 Glucose 228 mg/dL (65-115) H 09/19/22 21:37 Calculated Osmolality 287 mOsm/kg (285-295) 09/19/22 21:37 Calcium 9.2 mg/dL (8.5-10.5) 09/19/22 21:37 Total Bilirubin 0.5 mg/dL (0.15-1.2) 09/19/22 21:37 AST 28 U/L (0-32) 09/19/22 21:37 ALT 20 U/L (0-33) 09/19/22 21:37 Alkaline Phosphatase 124 U/L (35-105) H 09/19/22 21:37 Troponin T Baseline 11 ng/L (0-10) H 09/19/22 21:37 Troponin T 120 Minute 10.59 ng/L (0-10) H 09/19/22 23:52 Delta Troponin T -0.41 ABS# (0-10) L 09/19/22 23:52 C-Reactive Protein 87.6 mg/L (0.0-4.9) H 09/19/22 21:37 NT-Pro-B Natriuret Pep 470 pg/mL (0-125) H 09/19/22 21:37 Total Protein 8.0 g/dL (6.6-8.7) 09/19/22 21:37 Albumin 4.0 g/dL (3.5-5.2) 09/19/22 21:37 Globulin 4.0 g/dL (1.3-4.6) 09/19/22 21:37 Urine Color Colorless (Yellow) 09/19/22 22:32 Urine Appearance Clear (CLEAR) 09/19/22 22:32 Urine pH 6.5 (5-7) 09/19/22 22:32 Ur Specific [place] 1.010 (1.005-1.030) 09/19/22 22:32 Urine Protein Neg (Negative) 09/19/22 22:32 Urine Glucose (UA) 1+ (Normal) H 09/19/22 22:32 Urine Ketones Negative (Negative) 09/19/22 22:32 Urine Blood Neg (Negative) 09/19/22 22:32 Urine Nitrate Negative (Negative) 09/19/22 22:32 Urine Bilirubin Neg (Negative) 09/19/22 22:32 Urine Urobilinogen Norm mg/dL (Negative) 09/19/22 22:32 Ur Leukocyte Esterase Negative (Negative) 09/19/22 22:32 Discharge Plan Discharge Patient Disposition: Home Clinical Impression: Hypertensive urgency, Acute opioid withdrawal Condition: Stable Prescriptions: New amlodipine 10 mg tablet 10 mg PO DAILY Qty: 30 0RF No Action cholecalciferol (vitamin D3) 2,000 unit tablet 2,000 unit PO DAILY melatonin 10 mg capsule 10 mg PO DAILY fluticasone propionate [Flonase Allergy Relief] 50 mcg/actuation spray,suspension 1 spray INTRANASAL DAILY fexofenadine-pseudoephedrine [[place]-D 12 Hour] 60-120 mg tablet extended release 12 hr 1 tab PO Q12H PRN (Reason: Allergy Symptoms) multivitamin Capsule 1 cap PO DAILY hydrocodone-acetaminophen 10-325 mg tablet 1 tab PO BID PRN (Reason: Pain) fentanyl 75 mcg/hr patch 72 hour 1 patch TRANSDERMA Q72H tizanidine 4 mg tablet 4 mg PO .@night fluconazole 150 mg tablet 150 mg PO DAILY Qty: 3 5RF Cosentyx Pen 150 mg/mL pen injector 300 mg SUBCUT .[id number] 90 Days Qty: 2 3RF Levemir FlexTouch U-100 Insuln 100 unit/mL (3 mL) insulin pen 50 unit SUBCUT BID Qty: 90 3RF Rx Instructions: Inject 50 units subcut twice a day. insulin aspart U-100 [Novolog FlexPen U-100 Insulin] 100 unit/mL (3 mL) ins ulin pen 20 unit SUBCUT TID Qty: 60 3RF Rx Instructions: Inject 20 units subcut three times a day, 15 minutes before meals. (DME) pen needle, diabetic [BD Ultra-Fine Micro Pen Needle] 32 gauge x 1/4 needle See Rx Instructions .ROUTE .MEDSUPPLY Qty: 12 3RF Rx Instructions: As directed (DME) pen needle, diabetic [BD Virgen 2nd Gen Pen Needle] 32 gauge x 5/32 needle See Rx Instructions .ROUTE .MEDSUPPLY Qty: 450 3RF Rx Instructions: As directed hydrocortisone 2.5 % cream with perineal applicator 1 applic [place] DAILY PRN (Reason: hemorrhoids) Qty: 30 0RF hydrocortisone acetate 25 mg suppository 25 mg [place] BID Qty: 24 0RF metoprolol tartrate 50 mg tablet 50 mg PO BID Qty: 60 11RF lisinopril 20 mg tablet 20 mg PO BID Qty: 60 11RF (DME) FreeStyle Octavia 2 [place] Misc See Rx Instructions .Route Qty: 1 0RF Rx Instructions: Check BS 4-6 times a day escitalopram oxalate 10 mg tablet 10 mg PO DAILY Qty: 30 11RF levothyroxine 100 mcg tablet 100 mcg PO DAILY Qty: 90 3RF (DME) FreeStyle [place] 2 Sensor Kit See Rx Instructions .Route Qty: 6 3RF Rx Instructions: Change every 14 days. ondansetron HCl 4 mg tablet See Rx Instructions .ROUTE .COMPLEX Qty: 180 3RF Dose Instruction: TAKE 1 TABLET BY MOUTH EVERY 4 HOURS NEEDED Rx Instructions: TAKE 1 TABLET BY MOUTH EVERY 4 HOURS NEEDED nitrofurantoin monohyd/m-cryst [Macrobid] 100 mg capsule 100 mg PO BID Qty: 30 6RF Rx Instructions: must administer with a meal/food Praluent Pen 75 mg/mL pen injector 75 mg SUBCUT Q14D 90 Days Qty: 7 3RF leflunomide 10 mg tablet See Rx Instructions .ROUTE .COMPLEX Qty: 90 1RF Dose Instruction: TAKE 2 TABLETS BY MOUTH EVERY DAY Rx Instructions: TAKE 2 TABLETS BY MOUTH EVERY DAY diclofenac sodium 75 mg tablet,delayed release (DR/EC) 75 mg PO Q12H PRN (Reason: moderate to severe pain as needed) Qty: 30 1RF Discharge Orders: Discharge ED (Routine); Ordered 09/20/22 Ordered By: Omid Pineda Referrals: Felton Newsome MD [Primary Care Provider] - 1-3 days Patient Instructions: Hypertensive Crisis (ED), Opioid Withdrawal (ED), Opioid Safety, Pain Management Activity Restrictions/Additional Instructions: Continue to check your blood pressure twice daily. If numbers are remaining greater than 150/90, take the medication you were prescribed. Log numbers and keep for your physician. Return for any worsening symptoms. 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 Relations Coordinator for [facility] [employer] Documented by User: Omid Pineda, 09/20/22 00:46 HPI - Headache General: Chief Complaint: Headache Stated Complaint: Blood Pressure High\Headache\Dizzy Time Seen by Provider: 09/19/22 21:28 PFSH ED PFSH: Medical History Ankylosing spondylitis Arthritis of knee Breast cancer 2007 Chronic cystitis Diabetes Diabetes mellitus type 2, uncontrolled H/O renal calculi High risk medication use Immunization counseling Inflammatory arthritis Osteoarthritis Urolithiasis Surgical History H/O mastectomy H/O repair of left rotator cuff History of cholecystectomy History of extraction of renal calculus Previous section Family History Other Ankylosing spondylitis Diabetes Hypertension Lupus Rheumatoid arthritis Stroke Social History Smoking and tobacco status: never smoked Alcohol intake: never Adopted: No Caregiver/support person: No Lives independently: No Household members: spouse Marital status: Current occupational status: retired Current gender identity: Female Course Vital Signs: Vital signs: Vital Signs Temperature 97.8 F 09/19/22 21:30 Pulse Rate 76 09/19/22 23:15 Respiratory Rate 16 09/19/22 23:15 Blood Pressure 168/89 09/19/22 23:15 Pulse Oximetry 98 09/19/22 23:15 Oxygen Delivery Me thod Room Air 09/19/22 21:30 MDM - Headache Medical Decision Making Due to the patient's symptoms and condition IV status basic lab work and imaging will be obtained we will continue to follow we will continue to monitor the patient's blood pressure and intervene after the next 45 minutes of good readings to see with the patient currently resolved 2. We will continue to follow this patient was signed to Dr. Pineda at 2300 anticipate discharge home pending 2-hour troponin as well as improvement of the patient's blood pressure and symptoms. 62-year-old lady checked out to me at shift change. She presents with hypertension and opioid withdrawal symptoms causing multiple symptoms. Symptoms seem to be mostly improved after administration of fentanyl, and replacement of her normal Duragesic patch. Blood pressure is much improved currently down to 175/88 after administration of hydralazine, Vasotec, and amlodipine. She notes that her blood pressures have been hard to control for quite some time. This is not a new problem for her. We will prescribe her amlodipine 10 mg. She will continue to check her blood pressure twice daily, log numbers for her physician, and take amlodipine if needed for blood pressures greater than 150/90 systolic. She is encouraged to fill her Duragesic patch at the pharmacy tomorrow. She s hould be good for 3 days on the patch we gave her here. She knows to return for any worsening symptoms. Lab Data 09/19/22 21:37 09/19/22 21:37 Radiology Impressions Chest X-Ray 09/19/22 21:45 IMPRESSION: No change, unremarkable Head CT 09/19/22 21:45 IMPRESSION: No acute intracranial abnormality. Laboratory Results WBC 9.6 10^3/uL (4.0-10.0) 09/19/22 21:37 RBC 4.35 10^6/uL (4.1-5.3) 09/19/22 21:37 Hgb 11.9 g/dL (11.5-15.3) 09/19/22 21: Hct 38.6 % (37.0-47.0) 09/19/22 21:37 MCV 88.7 fl (81-99) 09/19/22 21:37 MCH 27.4 pg (28.0-34.0) L 09/19/22 21:37 MCHC 30.8 g/dL (30.0-36.0) 09/19/22 21: RDW 14.1 % (12.1-15.1) 09/19/22 21: Plt Count 218 10^3/cmm (130-400) 09/19/22 21:37 MPV 11.1 fL (7.4-10.4) H 09/19/22 21:37 Neut % (Auto) 79.4 % 09/19/22 21:37 Lymph % (Auto) 11.5 % 09/19/22 21:37 [place] % (Auto) 7.2 % 09/19/22 21:37 Eos % (Auto) 1.1 % 09/19/22 21:37 Baso % (Auto) 0.4 % 09/19/22 21:37 Neut # (Auto) 7.64 10^3/uL (1.8-7.7) 09/19/22 21:37 Lymph # (Auto) 1.1 10^3/uL (0.8-4.8) 09/19/22 21:37 [place] # (Auto) 0.7 10^3/uL (0.2-0.9) 09/19/22 21:37 Eos # (Auto) 0.1 10^3/uL (0.0-0.8) 09/19/22 21:37 Baso # (Auto) 0.0 10^3/uL (0.0-0.1) 09/19/22 21:37 Nucleated RBC % (auto) 0 % 09/19/22 21:37 Nucleated RBCs # 0.0 /100WBC 09/19/22 21:37 Sodium 135 mmol/L (136-145) L 09/19/22 21:37 Potassium 4.0 mmol/L (3.5-5.1) 09/19/22 21:37 Chloride 96 mmol/L (98-107) L 09/19/22 21:37 Carbon Dioxide 23 mmol/L (22-29) 09/19/22 21:37 Anion Gap 20.0 (5-19) H 09/19/22 21:37 BUN 13 mg/dL (8-23) 09/19/22 21:37 Creatinine 0.9 mg/dL (0.5-0.9) 09/19/22 21:37 GFR Calculation 63.0 mL/min (90-130) L 09/19/22 21:37 Glucose 228 mg/dL (65-115) H 09/19/22 21:37 Calculated Osmolality 287 mOsm/kg (285-295) 09/19/22 21:37 Calcium 9.2 mg/dL (8.5-10.5) 09/19/22 21:37 Total Bilirubin 0.5 mg/dL (0.15-1.2) 09/19/22 21:37 AST 28 U/L (0-32) 09/19/22 21:37 ALT 20 U/L (0-33) 09/19/22 21:37 Alkaline Phosphatase 124 U/L (35-105) H 09/19/22 21:37 Troponin T Baseline 11 ng/L (0-10) H 09/19/22 21:37 Troponin T 120 Minute 10.59 ng/L (0-10) H 09/19/22 23:52 Delta Troponin T -0.41 ABS# (0-10) L 09/19/22 23:52 C-Reactive Protein 87.6 mg/L (0.0-4.9) H 09/19/22 21:37 NT-Pro-B Natriuret Pep 470 pg/mL (0-125) H 09/19/22 21:37 Total Protein 8.0 g/dL (6.6-8.7) 09/19/22 21:37 Albumin 4.0 g/dL (3.5-5.2) 09/19/22 21:37 Globulin 4.0 g/dL (1.3-4.6) 09/19/22 21:37 Urine Color Colorless (Yellow) 09/19/22 22:32 Urine Appearance Clear (CLEAR) 09/19/22 22:32 Urine pH 6.5 (5-7) 09/19/22 22:32 Ur Specific [place] 1.010 (1.005-1.030) 09/19/22 22:32 Urine Protein Neg (Negative) 09/19/22 22:32 Urine Glucose (UA) 1+ (Normal) H 09/19/22 22:32 Urine Ketones Negative (Negative) 09/19/22 22:32 Urine Blood Neg (Negative) 09/19/22 22:32 Urine Nitrate Negative (Negative) 09/19/22 22:32 Urine Bilirubin Neg (Negative) 09/19/22 22:32 Urine Urobilinogen Norm mg/dL (Negative) 09/19/22 22:32 Ur Leukocyte Esterase Negative (Negative) 09/19/22 22:32 Discharge Plan Discharge Patient Disposition: Home Clinical Impression: Hypertensive urgency, Acute opioid withdrawal Condition: Stable Prescriptions: New amlodipine 10 mg tablet 10 mg PO DAILY Qty: 30 0RF No Action cholecalciferol (vitamin D3) 2,000 unit tablet 2,000 unit PO DAILY melatonin 10 mg capsule 10 mg PO DAILY fluticasone propionate [Flonase Allergy Relief] 50 mcg/actuation spray,[place] spension 1 spray INTRANASAL DAILY fexofenadine-pseudoephedrine [[place]-D 12 Hour] 60-120 mg tablet extended release 12 hr 1 tab PO Q12H PRN (Reason: Allergy Symptoms) multivitamin Capsule 1 cap PO DAILY hydrocodone-acetaminophen 10-325 mg tablet 1 tab PO BID PRN (Reason: Pain) fentanyl 75 mcg/hr patch 72 hour 1 patch TRANSDERMA Q72H tizanidine 4 mg tablet 4 mg PO .@night fluconazole 150 mg tablet 150 mg PO DAILY Qty: 3 5RF Cosentyx Pen 150 mg/mL pen injector 300 mg SUBCUT .[id number] 90 Days Qty: 2 3RF Levemir FlexTouch U-100 Insuln 100 unit/mL (3 mL) insulin pen 50 unit SUBCUT BID Qty: 90 3RF Rx Instructions: Inject 50 units subcut twice a day. insulin aspart U-100 [Novolog FlexPen U-100 Insulin] 100 unit/mL (3 mL) insulin pen 20 unit SUBCUT TID Qty: 60 3RF Rx Instructions: Inject 20 units subcut three times a day, 15 minutes before meals. (DME) pen needle, diabetic [BD Ultra-Fine Micro Pen Needle] 32 gauge x 1/4 needle See Rx Instructions .ROUTE .MEDSUPPLY Qty: 12 3RF Rx Instructions: As directed (DME) pen needle, diabetic [BD Virgen 2nd Gen Pen Needle] 32 gauge x 5/32 needle See Rx Instructions .ROUTE .MEDSUPPLY Qty: 450 3RF Rx Instructions: As directed hydrocortisone 2.5 % cream with perineal applicator 1 applic [place] DAILY PRN (Reason: hemorrhoids) Qty: 30 0RF hydrocortisone acetate 25 mg suppository 25 mg [place] BID Qty: 24 0RF metoprolol tartrate 50 mg tablet 50 mg PO BID Qty: 60 11RF lisinopril 20 mg tablet 20 mg PO BID Qty: 60 11RF (DME) FreeStyle [place] 2 [place] Misc See Rx Instructions .Route Qty: 1 0RF Rx Instructions: Check BS 4-6 times a day escitalopram oxalate 10 mg tablet 10 mg PO DAILY Qty: 30 11RF levothyroxine 100 mcg tablet 100 mcg PO DAILY Qty: 90 3RF (DME) FreeStyle [place] 2 Sensor Kit See Rx Instructions .Route Qty: 6 3RF Rx Instructions: Change every 14 days. ondansetron HCl 4 mg tablet See Rx Instructions .ROUTE .COMPLEX Qty: 180 3RF Dose Instruction: TAKE 1 TABLET BY MOUTH EVERY 4 HOURS NEEDED Rx Instructions: TAKE 1 TABLET BY MOUTH EVERY 4 HOURS NEEDED nitrofurantoin monohyd/m-cryst [Macrobid] 100 mg capsule 100 mg PO BID Qty: 30 6RF Rx Instructions: must administer with a meal/food Praluent Pen 75 mg/mL pen injector 75 mg SUBCUT Q14D 90 Days Qty: 7 3RF leflunomide 10 mg tablet See Rx Instructions .ROUTE .COMPLEX Qty: 90 1RF Dose Instruction: TAKE 2 TABLETS BY MOUTH EVERY DAY Rx Instructions: TAKE 2 TABLETS BY MOUTH EVERY DAY diclofenac sodium 75 mg tablet,delayed release (DR/EC) 75 mg PO Q12H PRN (Reason: moderate to severe pain as needed) Qty: 30 1RF Discharge Orders: Discharge ED (Routine); Ordered 09/20/22 Ordered By: Omid Pineda Referrals: Felton Newsome MD [Primary Care Provider] - 1-3 days Patient Instructions: Hypertensive Crisis (ED), Opioid Withdrawal (ED), Opioid Safety, Pain Management Activity Restrictions/Additional Instructions: Continue to check your blood pressure twice daily. If numbers are remaining greater than 150/90, take the medication you were prescribed. Log numbers and keep for your physician. Return for any worsening symptoms. 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 Relations Coordinator for [facility]
[2022-09-19 22:06] LABS: Basophils % 0.4 %; Eosinophils # 0.1 10^3/uL (0.0-0.8); Eosinophils % 1.1 %; Hematocrit 38.6 % (37.0-47.0); Hemoglobin 11.9 g/dL (11.5-15.3); Lymphocytes # 1.1 10^3/uL (0.8-4.8); Lymphocytes % 11.5 %; Mean Corpuscular HGB Conc 30.8 g/dL (30.0-36.0); Mean Corpuscular Hemoglobin 27.4 pg (28.0-34.0); Mean Corpuscular Volume 88.7 fl (81-99); Mean Platelet Volume 11.1 fL (7.4-10.4); Monocytes # 0.7 10^3/uL (0.2-0.9); Monocytes % 7.2 %; Neutrophils # 7.64 10^3/uL (1.8-7.7); Neutrophils % 79.4 %; Nucleated Red Blood Cells % 0 %; Platelet Count 218 10^3/cmm (130-400); Red Blood Count 4.35 10^6/uL (4.1-5.3); Red Cell Distribution Width 14.1 % (12.1-15.1); White Blood Count 9.6 10^3/uL (4.0-10.0)
[2022-09-19] MEDS: fentaNYL 50 mcg/mL INJ 2mL 66.2 MCG IVP (22:16)
[2022-09-19] MEDS: sodium chloride 0.9% 1,000 ML 75 ML IV (22:16)
[2022-09-19] MEDS: ondansetron 2 mg/ML SDV 2 mL 4 MG IVP ×2 (22:16→23:26)
[2022-09-19 22:22] LABS: Troponin(5th) Baseline 11 ng/L (0-10)
--- NOTE | 2022-09-19 22:23 | ECG_ITS ---
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 Measurements Intervals [place] Rate: 65 P: 30 [place]: 153 QRS: 17 QRSD: 86 T: 48 QT: 423 QTc: 442 Interpretive Statements SINUS RHYTHM POSSIBLE LEFT ATRIAL ENLARGEMENT [-0.1mV P-WAVE IN V1/V2] Compared to ECG 12/15/2019 14:57:02 Myocardial infarct finding no longer present Electronically Signed On 09-21-2022 0:07:25 CDT by Bhupendra Dillard M.D. [email or web address]
[2022-09-19] MEDS: diphenhydrAMINE 50 mg/mL SDV 1mL 25 MG IVP (22:27)
[2022-09-19] MEDS: ketorolac 30 mg/mL INJ 15 MG IVP (22:27)
[2022-09-19] MEDS: hyDRALAzine 20 mg/mL INJ 1 mL 10 MG IVP (22:28)
[2022-09-19 22:35] LABS: Add Urine Microscopic? NO; Charge for UA Resulting for Rev
[2022-09-19 22:35] LABS: Alanine Aminotransferase 20 U/L (0-33); Alkaline Phosphatase 124 U/L (35-105); Aspartate Amino Transferase 28 U/L (0-32); Blood Urea Nitrogen 13 mg/dL (8-23); C Reactive Protein 87.6 mg/L (0.0-4.9); Calcium 9.2 mg/dL (8.5-10.5); Carbon Dioxide 23 mmol/L (22-29); Chloride 96 mmol/L (98-107); Glucose 228 mg/dL (65-115); NT Pro B Type Natriuretic Pept 470 pg/mL (0-125); Osmolality Calculated 287 mOsm/kg (285-295); Sodium 135 mmol/L (136-145); Total Bilirubin 0.5 mg/dL (0.15-1.2)
[2022-09-19 22:38] LABS: Urine Appearance Clear (CLEAR); Urine Color Colorless (Yellow)
[2022-09-19 22:39] LABS: Bilirubin Urine Neg (Negative); Blood Urine Neg (Negative); Glucose Urine UA 1+ (Normal); Ketones Urine Negative (Negative); Leukocyte Esterase Urine Negative (Negative); Nitrate Urine Negative (Negative); Protein Urine Neg (Negative); Urobilinogen Urine Norm (Negative); pH Urine 6.5 (5-7)
[2022-09-19 23:15] VITALS: BP 168/89; PULSE 76; RESP 16; O2SAT 98
[2022-09-19] MEDS: amlodipine 10 mg Tablet PO (23:26)
[2022-09-19] MEDS: enalaprilat 1.25 mg/mL Inj IVP (23:26)
[2022-09-20 00:22] LABS: Troponin 5 2HR 10.59 ng/L (0-10); Troponin 5 2HR Delta -0.41 ABS# (0-10)
[2022-09-20 00:48] VITALS: BP 175/88; PULSE 79; RESP 16; O2SAT 98
== END 2022-09-20 00:49 | disposition home or self-care (01) ==
PROVIDERS: Emergency Medicine; Emergency Provider Emergency Medicine; PCP Family Medicine
DX: I16.0 Hypertensive urgency (principal); F11.23 Opioid dependence with withdrawal; Z79.4 Long term (current) use of insulin; Z85.3 Personal history of malignant neoplasm of breast; E11.9 Type 2 diabetes mellitus without complications
CPT/HCPCS: 70450; 71045; 80053; 81003; 83880; 84484; 85025; 86140; 93005; 96361; 96374; 96375; 96376; 99285; J0360; J1200; J1885; J2405; J3010; J3490; J7030

== ENCOUNTER → 2022-10-19 14:02 | Outpatient (BNVA) | payer MEDICARE, SELFPAY | PROVIDERS: PCP Family Medicine; Visit Provider Internal Medicine Rheumatology | DX: M45.0 Ankylosing spondylitis of multiple sites in spine (principal); Z71.89 Other specified counseling; Z79.899 Other long term (current) drug therapy; M17.0 Bilateral primary osteoarthritis of knee | CPT/HCPCS: 99214 ==

== ENCOUNTER 2022-11-02 16:47 | Outpatient (CLI) | payer MEDICARE, SELFPAY ==
[2022-11-02 18:21] LABS: Alanine Aminotransferase 26 U/L (0-33); Albumin Level 4.4 g/dL (3.5-5.2); Alkaline Phosphatase 115 U/L (35-105); Anion Gap 16.3 (5-19); Aspartate Amino Transferase 40 U/L (0-32); Blood Urea Nitrogen 16 mg/dL (8-23); Calcium 9.8 mg/dL (8.5-10.5); Carbon Dioxide 25 mmol/L (22-29); Chloride 101 mmol/L (98-107); Chol HDL Ratio 4.02 mg/dL (0.0-4.40); Cholesterol 201 mg/dL (0-200); Glomerular Filtration Rate 55.8 mL/min (90-130); Glucose 128 mg/dL (65-115); HDL Cholesterol 50 mg/dL (60-100); LDL Cholesterol Calculated 119 mg/dL (50-129); LDL HDL Ratio 2.38 RATIO (0.00-3.22); Osmolality Calculated 289 mOsm/kg (285-295); Potassium 4.3 mmol/L (3.5-5.1); Sodium 138 mmol/L (136-145); Thyroid Stimulating Hormone 1.18 uIU/mL (0.27-4.20); Total Bilirubin 0.3 mg/dL (0.15-1.2); Total Protein 8.4 g/dL (6.6-8.7); Triglycerides 160 mg/dL (0-150)
[2022-11-02 18:45] LABS: Creatinine Urine, Random 171 mg/dL (28-217); Microalbum Creatinine Ratio Ur 18 mg/dL (0-20); Microalbumin Random Urine 3 ug/dL (0-20)
[2022-11-02 19:58] LABS: Estmated Average Glucose 180; Hemoglobin A1C 7.9 % (4.0-6.0)
[2022-11-02 20:02] LABS: Free T4 Free Thyroxine 1.62 ng/dL (0.82-1.77)
[2022-11-05 02:55] LABS: T3 Total 90 ng/dL (76-181)
== END 2022-11-02 16:48 | disposition home or self-care (01) ==
LOC: LAB 16:50
PROVIDERS: PCP Family Medicine; Visit Provider Internal Medicine
DX: E03.9 Hypothyroidism, unspecified (principal); E11.9 Type 2 diabetes mellitus without complications; Z79.4 Long term (current) use of insulin
CPT/HCPCS: 36415; 80053; 80061; 82044; 83036; 84439; 84443; 84480

== ENCOUNTER → 2022-11-03 13:26 | Outpatient (BNVA) | payer MEDICARE, SELFPAY | PROVIDERS: PCP Family Medicine; Visit Provider Internal Medicine | DX: E11.9 Type 2 diabetes mellitus without complications (principal); E03.9 Hypothyroidism, unspecified; E78.2 Mixed hyperlipidemia; N39.0 Urinary tract infection, site not specified; Z78.9 Other specified health status; Z79.4 Long term (current) use of insulin; Z79.899 Other long term (current) drug therapy; Z79.890 Hormone replacement therapy | CPT/HCPCS: 99214 ==

== ENCOUNTER → 2022-11-29 15:18 | Outpatient (BNVA) | payer MEDICARE, SELFPAY | PROVIDERS: PCP Family Medicine; Referring Provider Internal Medicine Rheumatology; Visit Provider Nurse Practitioner Family | DX: L57.0 Actinic keratosis (principal); L82.0 Inflamed seborrheic keratosis; L72.0 Epidermal cyst; L81.4 Other melanin hyperpigmentation; D22.5 Melanocytic nevi of trunk; L85.3 Xerosis cutis; L57.8 Other skin changes due to chronic exposure to nonionizing radiation; L82.1 Other seborrheic keratosis; L40.0 Psoriasis vulgaris; M45.9 Ankylosing spondylitis of unspecified sites in spine | CPT/HCPCS: 17000; 17003; 17110; 99203 ==

== ENCOUNTER → 2023-01-19 13:36 | Outpatient (BNVA) | payer MEDICARE, SELFPAY | PROVIDERS: PCP Family Medicine; Visit Provider Internal Medicine Rheumatology | DX: Z79.899 Other long term (current) drug therapy (principal); M45.9 Ankylosing spondylitis of unspecified sites in spine; E03.9 Hypothyroidism, unspecified; E11.9 Type 2 diabetes mellitus without complications; E78.2 Mixed hyperlipidemia; N39.0 Urinary tract infection, site not specified; Z78.9 Other specified health status; M45.0 Ankylosing spondylitis of multiple sites in spine; Z71.89 Other specified counseling; M17.0 Bilateral primary osteoarthritis of knee | CPT/HCPCS: 80061; 80076; 82565; 84439; 85025; 86140; 99214 ==

== ENCOUNTER → 2023-02-07 08:38 | Outpatient (BNVA) | payer MEDICARE, SELFPAY | PROVIDERS: PCP Family Medicine; Visit Provider Internal Medicine | DX: E11.9 Type 2 diabetes mellitus without complications (principal); E03.9 Hypothyroidism, unspecified; E78.2 Mixed hyperlipidemia; N39.0 Urinary tract infection, site not specified; Z78.9 Other specified health status; Z79.890 Hormone replacement therapy; Z79.4 Long term (current) use of insulin; Z79.899 Other long term (current) drug therapy | CPT/HCPCS: 36415; 80053; 80061; 82044; 83036; 84443; 99214 ==

== ENCOUNTER 2023-04-05 11:39 | Observation (INO) | payer MEDICARE, SELFPAY ==
[2023-04-05] VITALS (21 sets, daily range): BP systolic 115–172; BP diastolic 51–92; PULSE 71–85; RESP 16–18; TEMP 36.5–37; O2SAT 90–98; BMI 27.3
[2023-04-05 12:54] LABS: Basophils # 0.1 10^3/uL (0.0-0.1); Basophils % 0.6 %; Eosinophils # 0.4 10^3/uL (0.0-0.8); Eosinophils % 3.5 %; Hematocrit 34.7 % (36-47); Lymphocytes % 10.1 %; Mean Corpuscular Hemoglobin 28.4 pg (27-33); Mean Corpuscular Volume 94.8 fl (85-98); Mean Platelet Volume 10.6 fL (7.4-10.4); Monocytes # 1.3 10^3/uL (0.2-0.9); Monocytes % 13.1 %; Neutrophils # 7.12 10^3/uL (1.8-7.7); Neutrophils % 72.1 %; Nucleated Red Blood Cells % 0 %; Platelet Count 257 10^3/cmm (157-399); Red Blood Count 3.66 10^6/uL (3.85-5.65); Red Cell Distribution Width 13.8 % (12.1-15.1); White Blood Count 9.88 10^3/uL (3.29-11.43)
[2023-04-05 13:11] LABS: Alanine Aminotransferase 24 U/L (0-33); Albumin Level 3.9 g/dL (3.5-5.2); Alkaline Phosphatase 136 U/L (35-105); Anion Gap 16.7 (5-19); Aspartate Amino Transferase 26 U/L (0-32); Blood Urea Nitrogen 18 mg/dL (8-23); Calcium 9.8 mg/dL (8.5-10.5); Carbon Dioxide 24 mmol/L (22-29); Chloride 99 mmol/L (98-107); Globulin 3.9 g/dL (1.3-4.6); Glomerular Filtration Rate 49.8 mL/min (90-130); Glucose 285 mg/dL (65-115); Osmolality Calculated 292 mOsm/kg (285-295); Potassium 4.7 mmol/L (3.5-5.1); Sodium 135 mmol/L (136-145); Total Bilirubin 0.4 mg/dL (0.15-1.2); Total Protein 7.8 g/dL (6.6-8.7)
--- NOTE | 2023-04-05 13:30 | ED_ITS ---
HPI - Female Genitourinary 2 General: Chief complaint: Urogenital-Female Stated complaint: rectal pain, nausea Time Seen by Provider: 04/05/23 13:13 History of Present Illness: Patient presents to the ER with complaints of perineal abscess/infection. Patient's been on clindamycin for the last 5 days from her PCP and she says the painful area has gotten smaller but is gotten more pronounced and prominent and a lump like fashion. Patient states she has had this 1 time before that cleared up with antibiotics. Patient's been on clindamycin for the last 5 days. Her doctor told her if she was not any better to go to the ER and she may need IV antibiotics. Review of Systems 2 General: Reports: 10 or more systems reviewed and unremarkable except in HPI and below PFSH ED 2 PFSH: Medical History Diabetes mellitus type 2, uncontrolled Inflammatory arthritis Urolithiasis Diabetes H/O renal calculi Arthritis of knee Chronic cystitis Breast cancer 2008 Osteoarthritis Ankylosing spondylitis Immunization counseling High risk medication use Surgical History H/O mastectomy History of cholecystectomy Previous section H/O repair of left rotator cuff History of extraction of renal calculus Family History Other Ankylosing spondylitis Diabetes Hypertension Lupus Rheumatoid arthritis Stroke Social History Smoking and tobacco/nicotine status: never used tobacco/nicotine Alcohol intake: never Adopted: No Caregiver/support person: No Lives independently: No Household members: spouse Marital status: Current occupational status: retired Current gender identity: Female Physical Exam 2 Const: COMMON NORMALS: no acute distress, average body habitus, patient oriented x3, no limitations, healthy appearing, alert and well nourished Neck/C-Spine: COMMON NORMALS: no JVD Chest: COMMONS NORMALS: normal inspection of the chest and normal palpation of entire chest wall Resp: COMMON NORMALS: normal respiratory effort, No retractions, No use of accessory muscles and clear to auscultation bilaterally AUSCULTATION: clear to auscultation bilaterally Cardio: COMMON NORMALS: no JVD, regular rate, regular rhythm, S1 normal heart sound present, S2 normal heart sound present, No gallops present (Cardio), No clicks present (Cardio), No murmurs present (Cardio) and No rub (Cardio) R ATE: regular rate RHYTHM: regular rhythm HEART SOUNDS: S1 normal heart sound present and S2 normal heart sound present GI: COMMON NORMALS: Normal to inspection, nondistended, normoactive bowel sounds present, Soft to palpation, non-tender, No hepatosplenomegaly present and no masses PALPATION: Yes Soft to palpation and Yes No hepatosplenomegaly present : OTHER: Small reddened area noticed on both sides of rectum. Right side more prominently swollen and more tender to the touch than the left side. Neuro: COMMON NORMALS: patient oriented x3 SENSORIUM/ORIENTATION: Yes alert Course 2 Vital Signs: Vital signs: Vital Signs Temperature 97.7 F 04/05/23 12:11 Pulse Rate 76 04/05/23 15:30 Respiratory Rate 16 04/05/23 15:30 Blood Pressure 130/64 04/05/23 15:30 Pulse Oximetry 96 04/05/23 15:30 Oxygen Delivery Me thod Room Air 04/05/23 14:30 MDM - Female Medical Decision Making Patient was prescribed clindamycin 5 days ago for perirectal sore from her PCP. The sores only gotten bigger. Patient failed outpatient antibiotics. CT scan was done which showed a perirectal abscess/fistula. Dr. Villanueva was consulted and thinks patient needs to go to surgery tomorrow to have this area opened up. Due to patient's comorbid medical problems patient will be admitted to the hospitalist and started on Zosyn. Patient will be admitted to Dr. Park he has been consulted and agreed to admission for further evaluation and treatment. Differential Diagnosis Unlikely abdominal pain, acute appendicitis, calculus of kidney, constipation, diverticulitis, endometriosis, gastroenteritis, pancreatitis or small bowel obstruction Medical Records I reviewed the patient's medical records. Lab Data I reviewed the patient's lab results. 04/05/23 12:35 04/05/23 12:35 Laboratory Results WBC 9.88 10^3/uL (3.29-11.43) 04/05/23 12:35 RBC 3.66 10^6/uL (3.85-5.65) L 04/05/23 12:35 Hgb 10.40 g/dL (11.27-16.99) L 04/05/23 12:35 Hct 34.7 % (36-47) L 04/05/23 12:35 MCV 94.8 fl (85-98) 04/05/23 12:35 MCH 28.4 pg (27-33) 04/05/23 12:35 MCHC 30.0 g/dL (30-55) 04/05/23 12:35 RDW 13.8 % (12.1-15.1) 04/05/23 12:35 Plt Count 257 10^3/cmm (157-399) 04/05/23 12:35 MPV 10.6 fL (7.4-10.4) H 04/05/23 12:35 Neut % (Auto) 72.1 % 04/05/23 12:35 Lymph % (Auto) 10.1 % 04/05/23 12:35 Darke % (Auto) 13.1 % 04/05/23 12:35 Eos % (Auto) 3.5 % 04/05/23 12:35 Baso % (Auto) 0.6 % 04/05/23 12:35 Neut # (Auto) 7.12 10^3/uL (1.8-7.7) 04/05/23 12:35 Lymph # (Auto) 1.0 10^3/uL (0.8-4.8) 04/05/23 12:35 Darke # (Auto) 1.3 10^3/uL (0.2-0.9) H 04/05/23 12:35 Eos # (Auto) 0.4 10^3/uL (0.0-0.8) 04/05/23 12:35 Baso # (Auto) 0.1 10^3/uL (0.0-0.1) 04/05/23 12:35 Nucleated RBC % (auto) 0 % 04/05/23 12:35 Nucleated RBCs # 0.0 /100WBC 04/05/23 12:35 Sodium 135 mmol/L (136-145) L 04/05/23 12:35 Potassium 4.7 mmol/L (3.5-5.1) 04/05/23 12:35 Chloride 99 mmol/L (98-107) 04/05/23 12:35 Carbon Dioxide 24 mmol/L (22-29) 04/05/23 12:35 Anion Gap 16.7 (5-19) 04/05/23 12:35 BUN 18 mg/dL (8-23) 04/05/23 12:35 Creatinine 1.1 mg/dL (0.5-0.9) H 04/05/23 12:35 GFR Calculation 49.8 mL/min (90-130) L 04/05/23 12:35 Glucose 285 mg/dL (65-115) H 04/05/23 12:35 Calculated Osmolality 292 mOsm/kg (285-295) 04/05/23 12:35 Calcium 9.8 mg/dL (8.5-10.5) 04/05/23 12:35 Total Bilirubin 0.4 mg/dL (0.15-1.2) 04/05/23 12:35 AST 26 U/L (0-32) 04/05/23 12:35 ALT 24 U/L (0-33) 04/05/23 12:35 Alkaline Phosphatase 136 U/L (35-105) H 04/05/23 12:35 Total Protein 7.8 g/dL (6.6-8.7) 04/05/23 12:35 Albumin 3.9 g/dL (3.5-5.2) 04/05/23 12:35 Globulin 3.9 g/dL (1.3-4.6) 04/05/23 12:35 All radiology interpretation(s) finalized by discharge Discharge Plan Discharge Patient Disposition: Admitted As Inpatient Clinical Impression: Abscess, perirectal, Fistula, perirectal Diabetes Qualifiers: Diabetes mellitus type: type 2 Diabetes mellitus [facility] insulin use: with [facility] use Diabetes mellitus complication status: without complication Q ualified Code(s): E11.9 - Type 2 diabetes mellitus without complications Condition: Stable Coding Level of Care Code ED Security Control Center Operator for Dave Jackson
--- NOTE | 2023-04-05 13:31 | CT_ITS ---
WS: [id number] CT ABDOMEN PELVIS TECHNIQUE: Contrast-enhanced CT of the abdomen and pelvis with coronal and sagittal reformatted image s. CLINICAL INFORMATION: rectal/perineal abscess/mass COMPARISON: None. DLP: 594.[address] scans at [facility] use at least one of these dose optimization techniques: automated e xposure control; mA and/or kV adjustment per patient size (includes targeted exams where dose is matc hed to clinical indication); or iterative reconstruction. FINDINGS: Low-attenuation perineal collection with an upside down horseshoe configuration measuring approximate ly 2.9 x 2.3 cm with surrounding induration and soft tissue thickening. Suspected small fistulous tra ct to the LEFT aspect of the anus. Findings suspicious for perianal fistula with abscess formation. A nal mass or neoplasm should be excluded in a patient this age. Sigmoid diverticulosis. No evidence of acute diverticulitis. Hepatomegaly. Diffuse fatty infiltration of the liver. Normal portal vein and splenic vein. Normal spleen. Normal GE junction. Prior hysterec saima. Fatty atrophy of the pancreas. Normal caliber abdominal aorta. Aortic calcification. Adrenal gl ands are normal. Bilateral renal cortical atrophy. Normal parenchymal enhancement. No hydronephrosis. Fat-containing umbilical hernia. No herniated bowel. Ankylosis lumbar spine. IMPRESSION: 1. Low-attenuation peripherally enhancing perineal fluid collection with an upside down horseshoe co nfiguration measuring 2.9 x 2.4 cm. 2. Apparent fistulous tract to the LEFT aspect of the anus near the 5 o'clock position suspicious fo r perianal fistula with abscess formation. Neoplasm should be excluded in a patient this age. 3. No other acute findings. 4. Prior hysterectomy. Notified Woodrow Olguin DO at 04/05/2023 4:02 PM.
[2023-04-05] MEDS: ondansetron 2 mg/ML SDV 2 mL 4 MG IVP ×2 (13:52→21:04)
[2023-04-05] MEDS: sodium chloride 0.9% 1,000 ML 999 ML IV (13:52)
[2023-04-05] MEDS: morphine 4 mg/mL SDV 1 mL IVP (13:55)
[2023-04-05] MEDS: iohexol 350 mg/mL 500 mL Btl (per mL) IV (15:22)
--- NOTE | 2023-04-05 17:17 | PM.CONSULT ---
Providers/Reason For Consult Consulting Physician/Specialty*: General Surgery Reason for Consult*: Perianal abscess Primary Care Provider: Felton Newsome MD History of Present Illness History of Present Illness Yuliya Khan is a 63 year old female with multiple medical comorbid conditions who presents tot [facility] for evaluation of perianal swelling and pain. patient noticed the swelling about 10 days ago. she visited primary care doctor who prescribed antibiotics and recommended ED referral if symptoms persisted. patient has taken 5 days of antibiotics but continuess to have significant pain and swelling Review of Systems General: Reports: 10 or more systems reviewed and unremarkable except in HPI and below Medications/Allergies Home Medications Medication Instructions Recorded Confirmed Last Taken Type hydrocodone 10 mg-acetaminophen 0.5 - 1 tab PO Q4H PRN Pain 07/02/19 04/05/23 12/15/19 History 325 mg tablet cholecalciferol (vitamin D3) 50 2,000 unit PO QAM 07/03/19 04/05/23 04/05/23 History mcg (2,000 unit) tablet fexofenadine 60 mg-pseudoephedrine 1 tab PO Q12H PRN Allergy Symptoms 07/03/19 04/05/23 12/14/19 History ER 120 mg tablet,ext.release,12 hr (Ariane-D 12 Hour) tizanidine 4 mg tablet 4 mg PO Q12H PRN Muscle Spasm 10/11/19 04/05/23 12/14/19 History flash glucose scanning reader #1 ea 10/28/21 04/05/23 Unknown Rx (FreeStyle Octavia 2 [place]) hydrocortisone 2.5 % topical cream 1 applic [place] DAILY PRN hemorrhoids 03/26/22 04/05/23 5 Days Ago Rx with perineal applicator #30 grams ~03/31/23 pen needle, diabetic 32 gauge x #12 ea 04/06/22 04/05/23 Unknown Rx 1/ (BD Ultra-Fine Micro Pen Needle) pen needle, diabetic 32 gauge x #450 ea 04/06/22 04/05/23 Unknown Rx (BD Virgen 2nd Gen Pen Needle) fentanyl 50 mcg/hr transdermal 1 patch transdermal Q72H 10/05/22 04/05/23 04/04/23 History patch on left breast metoprolol tartrate 50 mg tablet 50 mg PO BID #180 tabs 10/05/22 04/05/23 04/05/23 Rx insulin aspart U-100 100 unit/mL See Rx Instructions .Route 11/10/22 04/05/23 04/04/23 Rx (3 mL) subcutaneous pen (Novolog .COMPLEX #60 mL FlexPen U-100 Insulin aspart) evolocumab 140 mg/mL subcutaneous See Rx Instructions .Route 01/04/23 04/05/23 Unknown Rx pen injector (Repatha SureClick) .COMPLEX #6 mL flash glucose sensor (FreeStyle #6 ea 01/19/23 04/05/23 Unknown Rx Octavia 2 Sensor kit) secukinumab 150 mg/mL subcutaneous 300 mg (2 mL) SUBCUT .W2cykli 90 01/19/23 04/05/23 27 Days Ago Rx pen injector (Cosentyx Pen) days #2 mL ~03/09/23 diclofenac sodium 75 mg 75 mg PO Q12H PRN moderate to 03/07/23 04/05/23 Unknown Rx tablet,delayed release severe pain as needed #30 tabs clindamycin HCl 300 mg capsule 300 mg PO TID 10 days #30 caps 03/30/23 04/05/23 04/05/23 Rx lidocaine 5 % topical ointment 1 applic topical DAILY PRN skin 03/30/23 04/05/23 Unknown Rx irritation #30 grams amlodipine 10 mg tablet 10 mg PO QAM 04/05/23 04/05/23 04/05/23 History escitalopram oxalate 10 mg tablet 10 mg PO QAM 04/05/23 04/05/23 04/05/23 History hydrocortisone acetate 25 mg 25 mg [place] BID PRN Hemorrhoids 04/05/23 04/05/23 5 Days Ago History rectal suppository ~03/31/23 insulin detemir U-100 100 unit/mL 50 unit SUBCUT BID 04/05/23 04/05/23 04/05/23 History (3 mL) subcutaneous pen (Levemir FlexPen) leflunomide 10 mg tablet 20 mg PO DAILY 04/05/23 04/05/23 5 Days Ago History ~03/31/23 levothyroxine 100 mcg tablet 100 mcg PO QAM 04/05/23 04/05/23 04/05/23 History lisinopril 20 mg tablet 20 mg PO BID 04/05/23 04/05/23 04/05/23 History multivitamin 1 tab PO DAILY 04/05/23 04/05/23 3 Days Ago History ~04/02/23 ondansetron HCl 4 mg tablet 4 mg PO Q4H PRN Nausea And Vomiting 04/05/23 04/05/23 Unknown History temazepam 7.5 mg capsule (Restoril) 7.5 mg PO BEDTIME PRN sleep 04/05/23 04/05/23 04/04/23 History Allergies Allergy/AdvReac Type Severity Reaction Status Date / Time semaglutide [From Ozempic] AdvReac NAUSEATED Verified 03/30/23 14:45 AND VOMITING Sulfa (Sulfonamide AdvReac Unknown Verified 03/30/23 14:45 Antibiotics) PFSH Acute PFSH: Medical History Diabetes mellitus type 2, uncontrolled Inflammatory arthritis Urolithiasis Diabetes H/O renal calculi Arthritis of knee Chronic cystitis Breast cancer 2007 Osteoarthritis Ankylosing spondylitis Immunization counseling High risk medication use Surgical History H/O mastectomy History of cholecystectomy Previous section H/O repair of left rotator cuff History of extraction of renal calculus Family History Other Ankylosing spondylitis Diabetes Hypertension Lupus Rheumatoid arthritis Stroke Social History Smoking and tobacco/nicotine status: never used tobacco/nicotine Alcohol intake: never Adopted: No Caregiver/support person: No Lives independently: No Household members: spouse Marital status: Current occupational status: retired Current gender identity: Female Vitals/I&O/Wt Last Vital Signs Temp 97.7 F 04/05/23 12:11 Pulse 76 04/05/23 15:30 Resp 16 04/05/23 15:30 BP 130/64 04/05/23 15:30 Pulse Ox 96 04/05/23 15:30 O2 Del Method Room Air 04/05/23 14:30 04/05/23 04/05/23 04/05/23 06:59 14:59 22:59 Intake Total 1000 / 1000 Balance 1000 / 1000 Weight last 48 hrs Weight 140 lb Physical Exam Const: COMMON NORMALS: no acute distress, average body habitus and patient oriented x3 Chest: COMMONS NORMALS: normal inspection of the chest and normal palpation of entire chest wall GI: COMMON NORMALS: Normal to inspection, nondistended, normoactive bowel sounds present, Soft to palpation and non-tender PALPATION: Yes Soft to palpation RECTAL EXAM: other (there is a fluctuan area of about 3 cm on the anterior anal marging) Neuro: COMMON NORMALS: patient oriented x3 Data 04/05/23 12:35 04/05/23 12:35 A&P Assessment and plan (1) Fistula, perirectal: (2) Abscess, perirectal: Plan after a complete history, physical examination and review of available clinical data the following is my assessment. patient has a perianal abscess and high likelyhood of perianal fistula as noted in imaging. I&D and EUA is indicated. I have discussed all the risk and benefits including risk of incontinence, persistent drainage, fistula formation, need for additional interventions. patient aknowledges the risks and wishes to proceed. Patient will be admitted to hospitalist team due to multiple coomorbidities and I will perform I&D tomorrow at 7am. Patient will be initiated on Zosyn in the interim. Coding Level of Care Code 59028 Diagnoses Fistula, perirectal K60.4 Abscess, perirectal K61.1
--- NOTE | 2023-04-05 17:51 | ECG_ITS ---
[facility] Test Date: 2023-04-05 Pat Name: Yuliya Khan Department: Room: Gender: Female Principal Gifts Officer: : 1960 Requested By: Ezequiel Painter Order Number: [id number] Howard MD: Elida Stephenson M.D. Measurements Intervals [place] Rate: 79 P: 46 NV: 174 QRS: 10 QRSD: 96 T: 55 QT: 370 QTc: 424 Interpretive Statements SINUS RHYTHM Normal EKG Compared to ECG 09/19/2022 22:23:00 No significant changes Electronically Signed On 04-07-2023 16:51:02 TECHNICAL SERVICE REPRESENTATIVE by Elida Stephenson M.D. [email or web address]
--- NOTE | 2023-04-05 17:51 | XRR_ITS ---
PROCEDURE INFORMATION: Exam: XR Chest Exam date and time: 04/05/2023 7:03 PM Age: 63 years old Clinical indication: Pre-operative exam; Respiratory screening exam; Prior surgery; Surgery date: 6+ months; Surgery type: Lt mast; Additional info: Preope TECHNIQUE: Imaging protocol: Radiologic exam of the chest. Views: 1 view. COMPARISON: CR XR chest 1V portable [id number] 09/19/2022 9:53 PM FINDINGS: Lungs: There is scarring in the left lung base. No consolidation. Pleural spaces: No pleural effusion. No pneumothorax. Heart/Mediastinum: No cardiomegaly. Bones/joints: Unremarkable. There is no free intraperitoneal air. XR/XR chest 1V portable [id number] IMPRESSION: No acute cardiopulmonary disease.
--- NOTE | 2023-04-05 17:51 | PM.HP ---
Providers/Chief Complaint Primary Care Provider: Felton Newsome MD Chief Complaint: rectal pain, nausea History of Present Illness Yuliya Khan is a 63 year old female with a past medical history of rheumatoid arthritis, ankylosing spondylitis, history of insulin-dependent type 2 diabetes mellitus, history of recurrent hemorrhoids, hypertension, hyperlipidemia, chronic pain on fentanyl patch, who presents to [facility] due to perianal pain, and drainage. Patient tells me that she has hemorrhoids, that can be quite severe that frequently requires lancing. She started to develop a perianal bump, with drainage she thought it was a hemorrhoid, she saw her primary care, who diagnosed her with a perianal abscess, she was put on clindamycin, and advised to continue to monitor, she was continued to have swelling, pain, drainage, no fevers, chills, no cough, no abdominal pain, no lightheadedness, dizziness. Due to persistent pain, swelling, drainage she presented to the emergency room, she had a CAT scan performed which showed a perianal abscess fluid collection, with fistulous tract. Hospitalist team has been called for medical management, she is ambulatory, she cannot sit in bed due to severe pain, she has a 50 mcg fentanyl patch on right now, it is due to be changed tomorrow afternoon, she tells me her sugars have been well controlled, nothing greater than 200, she tells me, no hypoglycemia episodes, she has been holding her leflunomide, denies a history of Crohn's disease, denies a history of ulcerative colitis Review of Systems Const: Denies: fever(s) Card: Denies: chest pain Resp: Denies: dyspnea GI: Denies: abdominal pain : Denies: flank pain Medications/Allergies Home Medications Medication Instructions Recorded Confirmed Last Taken Type hydrocodone 10 mg-acetaminophen 0.5 - 1 tab PO Q4H PRN Pain 07/02/19 04/05/23 12/15/19 History 325 mg tablet cholecalciferol (vitamin D3) 50 2,000 unit PO QAM 07/03/19 04/05/23 04/05/23 History mcg (2,000 unit) tablet fexofenadine 60 mg-pseudoephedrine 1 tab PO Q12H PRN Allergy Symptoms 07/03/19 04/05/23 12/14/19 History ER 120 mg tablet,ext.release,12 hr (Ariane-D 12 Hour) tizanidine 4 mg tablet 4 mg PO Q12H PRN Muscle Spasm 10/11/19 04/05/23 12/14/19 History flash glucose scanning reader #1 ea 10/28/21 04/05/23 Unknown Rx (FreeStyle Octavia 2 [place]) hydrocortisone 2.5 % topical cream 1 applic MS DAILY PRN hemorrhoids 03/26/22 04/05/23 5 Days Ago Rx with perineal applicator #30 grams ~03/31/23 pen needle, diabetic 32 gauge x #12 ea 04/06/22 04/05/23 Unknown Rx 1/ (BD Ultra-Fine Micro Pen Needle) pen needle, diabetic 32 gauge x #450 ea 04/06/22 04/05/23 Unknown Rx (BD Virgen 2nd Gen Pen Needle) fentanyl 50 mcg/hr transdermal 1 patch transdermal Q72H 10/05/22 04/05/23 04/04/23 History patch on left breast metoprolol tartrate 50 mg tablet 50 mg PO BID #180 tabs 10/05/22 04/05/23 04/05/23 Rx insulin aspart U-100 100 unit/mL See Rx Instructions .Route 11/10/22 04/05/23 04/04/23 Rx (3 mL) subcutaneous pen (Novolog .COMPLEX #60 mL FlexPen U-100 Insulin aspart) evolocumab 140 mg/mL subcutaneous See Rx Instructions .Route 01/04/23 04/05/23 Unknown Rx pen injector (Repatha SureClick) .COMPLEX #6 mL flash glucose sensor (FreeStyle #6 ea 01/19/23 04/05/23 Unknown Rx Octavia 2 Sensor kit) secukinumab 150 mg/mL subcutaneous 300 mg (2 mL) SUBCUT .[id number] 90 01/19/23 04/05/23 27 Days Ago Rx pen injector (Cosentyx Pen) days #2 mL ~03/09/23 diclofenac sodium 75 mg 75 mg PO Q12H PRN moderate to 03/07/23 04/05/23 Unknown Rx tablet,delayed release severe pain as needed #30 tabs clindamycin HCl 300 mg capsule 300 mg PO TID 10 days #30 caps 03/30/23 04/05/23 04/05/23 Rx lidocaine 5 % topical ointment 1 applic topical DAILY PRN skin 03/30/23 04/05/23 Unknown Rx irritation #30 grams amlodipine 10 mg tablet 10 mg PO QAM 04/05/23 04/05/23 04/05/23 History escitalopram oxalate 10 mg tablet 10 mg PO QAM 04/05/23 04/05/23 04/05/23 History hydrocortisone acetate 25 mg 25 mg MS BID PRN Hemorrhoids 04/05/23 04/05/23 5 Days Ago History rectal suppository ~03/31/23 insulin detemir U-100 100 unit/mL 50 unit SUBCUT BID 04/05/23 04/05/23 04/05/23 History (3 mL) subcutaneous pen (Levemir FlexPen) leflunomide 10 mg tablet 20 mg PO DAILY 04/05/23 04/05/23 5 Days Ago History ~03/31/23 levothyroxine 100 mcg tablet 100 mcg PO QAM 04/05/23 04/05/23 04/05/23 History lisinopril 20 mg tablet 20 mg PO BID 04/05/23 04/05/23 04/05/23 History multivitamin 1 tab PO DAILY 04/05/23 04/05/23 3 Days Ago History ~04/02/23 ondansetron HCl 4 mg tablet 4 mg PO Q4H PRN Nausea And Vomiting 04/05/23 04/05/23 Unknown History temazepam 7.5 mg capsule (Restoril) 7.5 mg PO BEDTIME PRN sleep 04/05/23 04/05/23 04/04/23 History Allergies Allergy/AdvReac Type Severity Reaction Status Date / Time semaglutide [From Ozempic] AdvReac NAUSEATED Verified 03/30/23 14:45 AND VOMITING Sulfa (Sulfonamide AdvReac Unknown Verified 03/30/23 14:45 Antibiotics) PFSH Acute PFSH: Medical History Diabetes mellitus type 2, uncontrolled Inflammatory arthritis Urolithiasis Diabetes H/O renal calculi Arthritis of knee Chronic cystitis Breast cancer 2007 Osteoarthritis Ankylosing spondylitis Immunization counseling High risk medication use Surgical History H/O mastectomy History of cholecystectomy Previous section H/O repair of left rotator cuff History of extraction of renal calculus Family History Other Ankylosing spondylitis Diabetes Hypertension Lupus Rheumatoid arthritis Stroke Social History Smoking and tobacco/nicotine status: never used tobacco/nicotine Alcohol intake: never Adopted: No Caregiver/support person: No Lives independently: No Household members: spouse Marital status: Current occupational status: retired Current gender identity: Female Vitals/I&O/Wt Last Vital Signs Temp 97.7 F 04/05/23 12:11 Pulse 82 04/05/23 17:00 Resp 17 04/05/23 17:00 BP 162/76 04/05/23 17:00 Pulse Ox 96 04/05/23 17:00 O2 Del Method Room Air 04/05/23 17:00 04/05/23 04/05/23 04/05/23 06:59 14:59 22:59 Intake Total 1000 / 1000 Balance 1000 / 1000 Weight last 48 hrs Weight 63.503 kg Physical Exam Const: COMMON NORMALS: no acute distress and patient oriented x3 GENERAL APPEARANCE: cooperative and comfortable HENMT: COMMON NORMALS: normocephalic HEAD & SCALP: normocephalic Eye: COMMON NORMALS: Equal, round and reactive pupils present and EOMs intact bilaterally GENERAL EYE: appearance normal, both eyes and all related structures PUPIL: Yes Equal, round and reactive pupils present Neck/C-Spine: COMMON NORMALS: no lymphadenopathy Lymph: LYMPHATIC: no lymphadenopathy noted Resp: COMMON NORMALS: normal respiratory effort, No retractions, No use of accessory muscles and clear to auscultation bilaterally AUSCULTATION: clear to auscultation bilaterally Cardio: COMMON NORMALS: regular rate, regular rhythm, S1 normal heart sound present, S2 normal heart sound present, No gallops present (Cardio), No clicks present (Cardio) and No murmurs present (Cardio) RATE: regular rate RHYTHM: regular rhythm HEART SOUNDS: S1 normal heart sound present and S2 normal heart sound present GI: COMMON NORMALS: Normal to inspection, nondistended, normoactive bowel sounds present, Soft to palpation and non-tender Extremity: COMMON NORMALS: no pedal edema Neuro: COMMON NORMALS: patient oriented x3, CN's II-XII intact bilaterally, moves all extremities and no focal motor deficits Psych: COMMON NORMALS: mental status grossly normal, Normal thought process present and cooperative THOUGHT PROCESS: Normal thought process present Skin: NARRATIVE SKIN EXAM: Perianal exam, perianal abscess, measuring 4 x 4 cm, small opening seen on top, no drainage, Data 04/05/23 12:35 04/05/23 12:35 A&P Assessment and plan (1) Diabetes: Qualifiers: Diabetes mellitus complication status: without complication Diabetes mellitus group home insulin use: with terminal clerk use Diabetes mellitus type: type 2 Qualified Code(s): E11.9 - Type 2 diabetes mellitus without complications; Z79.4 - ad terminal makeup operator (current) use of insulin (2) Fistula, perirectal: (3) Abscess, perirectal: (4) Cellulitis of perianal area: (5) Hypertension: (6) Ankylosing spondylitis: Qualifiers: Ankylosing spondylitis location: multiple sites in spine Qualified Code(s): M45.0 - Ankylosing spondylitis of multiple sites in spine (7) Inflammatory arthritis: (8) Diabetes mellitus type 2, uncontrolled: (9) Hyperlipemia, mixed: (10) Hypothyroid: Plan Perirectal/perianal abscess, fistula IMPRESSION: 1. Low-attenuation peripherally enhancing perineal fluid collection with an upside down horseshoe configuration measuring 2.9 x 2.4 cm. 2. Apparent fistulous tract to the LEFT aspect of the anus near the 5 o'clock position suspicious for perianal fistula with abscess formation. Neoplasm should be excluded in a patient this age. 3. No other acute findings. 4. Prior hysterectomy. PLAN: -will start IV vancomycin and zosyn -morphine IV for acute pain control -Chronic fentanyl patch to be changed tommorow -lantus 25 units BID, MDSS -discussed patent history of ankylosing spondylitis, rheumatoid arthritis, with anesthesiology ?General surgery has been consulted, n.p.o. midnight for surgical intervention tomorrow morning ? Full code, ? Lovenox for DVT prophylaxis #CODE STATUS, patient does not want to be resuscitated, is okay with intubation if required Attestations Medical Necessity Statement*: Patient requires hospitalization, outpatient observation, for perianal rectal abscess with fistula Diagnoses Diabetes E11.9; Z79.4 Diabetes mellitus complication status: without complication Diabetes mellitus group home insulin use: with terminal clerk use Diabetes mellitus type: type 2 Fistula, perirectal K60.4 Abscess, perirectal K61.1 Cellulitis of perianal area K61.0 Hypertension I10 Ankylosing spondylitis of multiple sites in spine M45.0 Ankylosing spondylitis location: multiple sites in spine Inflammatory arthritis M19.90 Diabetes mellitus type 2, uncontrolled Hyperlipemia, mixed E78.2 Hypothyroid E03.9
[2023-04-05] MEDS: piperacillin-tazobactam 3.375 GM in sodium chloride 0.9% (plus) 50 ML IV (19:05)
[2023-04-05 19:07] LABS: Erythrocyte Sedimentation Rate 44 mm/hr (0-15)
[2023-04-05 19:35] LABS: Procalcitonin 0.18 ng/mL (0-0.5)
[2023-04-05 19:58] LABS: Lactic Sepsis W/Reflex 1.6 mmol/L (0.5-2.2)
[2023-04-05 20:42] LABS: Estmated Average Glucose 200; Hemoglobin A1C 8.6 % (4.0-6.0)
[2023-04-05] MEDS: pantoprazole 40 mg SDV IVP (21:04)
[2023-04-05] MEDS: lisinopril 20 mg Tablet PO (21:04)
[2023-04-05] MEDS: metoprolol tartrate 50 mg Tablet PO (21:04)
[2023-04-05 21:05] LABS: Thyroid Stimulating Hormone 3.71 uIU/mL (0.27-4.20)
[2023-04-05] MEDS: sodium chloride 0.9% 1,000 ML 75 ML IV (21:11)
[2023-04-05] MEDS: morphine 4 mg/mL SDV 1 mL 2 MG IVP (21:11)
[2023-04-05] MEDS: vancomycin 750 MG in sodium chloride 0.9% 250 ML 250 MG IV (21:15)
[2023-04-05] MEDS: enoxaparin 40 mg/0.4 mL Syringe SUBCUT (21:20)
[2023-04-05 21:23] LABS: Glucose Point of Care 99 mg/dL (70-110)
[2023-04-06] VITALS (21 sets, daily range): BP systolic 127–184; BP diastolic 60–93; PULSE 72–88; RESP 12–20; TEMP 36.6–37.2; O2SAT 92–98; BMI 27.3
[2023-04-06] MEDS: morphine 4 mg/mL SDV 1 mL 2 MG IVP ×2 (01:32→12:17)
[2023-04-06 05:42] LABS: Basophils % 0.5 %; Eosinophils # 0.2 10^3/uL (0.0-0.8); Eosinophils % 2.8 %; Hematocrit 29.3 % (36-47); Lymphocytes # 1.2 10^3/uL (0.8-4.8); Lymphocytes % 18.9 %; Mean Corpuscular HGB Conc 30.4 g/dL (30-55); Mean Corpuscular Hemoglobin 28.2 pg (27-33); Mean Corpuscular Volume 92.7 fl (85-98); Mean Platelet Volume 10.8 fL (7.4-10.4); Monocytes % 15.3 %; Neutrophils # 3.94 10^3/uL (1.8-7.7); Neutrophils % 62.2 %; Nucleated Red Blood Cells % 0 %; Platelet Count 168 10^3/cmm (157-399); Red Blood Count 3.16 10^6/uL (3.85-5.65); White Blood Count 6.34 10^3/uL (3.29-11.43)
[2023-04-06 06:05] LABS: Alanine Aminotransferase 21 U/L (0-33); Albumin Level 3.3 g/dL (3.5-5.2); Alkaline Phosphatase 130 U/L (35-105); Anion Gap 14.6 (5-19); Aspartate Amino Transferase 32 U/L (0-32); Blood Urea Nitrogen 12 mg/dL (8-23); Calcium 8.9 mg/dL (8.5-10.5); Carbon Dioxide 25 mmol/L (22-29); Chloride 108 mmol/L (98-107); Globulin 3.4 g/dL (1.3-4.6); Glomerular Filtration Rate 55.6 mL/min (90-130); Glucose 91 mg/dL (65-115); Magnesium 1.9 mg/dL (1.7-2.3); Osmolality Calculated 295 mOsm/kg (285-295); Phosphorus 2.6 mg/dL (2.5-4.5); Potassium 4.6 mmol/L (3.5-5.1); Sodium 143 mmol/L (136-145); Total Bilirubin 0.4 mg/dL (0.15-1.2); Total Protein 6.7 g/dL (6.6-8.7)
[2023-04-06] MEDS: sodium chloride 0.9% 1,000 ML 30 ML IV (06:37)
--- NOTE | 2023-04-06 06:37 | P.HPUD_ITS ---
Surgery/Procedure H&P Update DATE OF PROCEDURE: April 06, 2023 DATE H&P PERFORMED: 04/05/23 H&P UPDATE INFORMATION: I have reviewed H&P completed within last 30 days, I have examined patient prior to procedure, No changes to prior documentation and H&P is in [facility] EMR on date indicated PLANNED PROCEDURE: Operation Date: 04/06/23 07:00 Proposed Procedures p Incision And Drainage Incision And Drainage Perianal Abscess(Not Applicable) - Dixon Arriaza MD
--- NOTE | 2023-04-06 06:47 | ANES.PREANE2 ---
Pre-Anesthetic Assessment Height/Weight: Height 1.52 m Weight 63.503 kg Temp Pulse Resp BP Pulse Ox O2 Del Method 98.6 F 72 18 130/60 94 Room Air 04/06/23 04:31 04/06/23 05:16 04/06/23 04:31 04/06/23 04:31 04/06/23 04:31 04/05/23 22:29 Operation Date: 04/06/23 07:00 Proposed Procedures p Incision And Drainage Incision And Drainage Perianal Abscess(Not Applicable) - Dixon Arriaza MD Familial anesthetic complications: none Was Beta Slime taken within 24 hours: N/A Was Clonidine taken within 24 hours: N/A Last intake: Intake Last Liquid Date 04/05/23 Last Liquid Time 20:00 Last Solid Date 04/05/23 Last Solid Time 12:00 Social No alcohol and No tobacco Exam alert, oriented x 3, clear to auscultation bilaterally and regular rate & rhythm Airway Mallampati: Class I Dentition: false Comments: Comments: very poor cervical extension d/t cervical fusion from ankylosing spondylitis, she is concerned about difficult intubation CV/HEM Anemia and Hypertension Metabolic Diabetes Mellitus and Thyroid Disease [facility] Rheumatoid Arthritis ankylosing spondylitis w/ cervvical fusion Anesthetic Plan ASA status: 3 Anesthesia: Choice Risk of > 500 ml blood loss (7ml/kg in children): No Medications/Allergies Home Medications Medication Instructions Recorded Confirmed Last Taken Type hydrocodone 10 mg-acetaminophen 0.5 - 1 tab PO Q4H PRN Pain 07/02/19 04/05/23 12/15/19 History 325 mg tablet cholecalciferol (vitamin D3) 50 2,000 unit PO QAM 07/03/19 04/05/23 04/05/23 History mcg (2,000 unit) tablet fexofenadine 60 mg-pseudoephedrine 1 tab PO Q12H PRN Allergy Symptoms 07/03/19 04/05/23 12/14/19 History ER 120 mg tablet,ext.release,12 hr (Ariane-D 12 Hour) tizanidine 4 mg tablet 4 mg PO Q12H PRN Muscle Spasm 10/11/19 04/05/23 12/14/19 History flash glucose scanning reader #1 ea 10/28/21 04/05/23 Unknown Rx (FreeStyle Octavia 2 [place]) hydrocortisone 2.5 % topical cream 1 applic [place] DAILY PRN hemorrhoids 03/26/22 04/05/23 5 Days Ago Rx with perineal applicator #30 grams ~03/31/23 pen needle, diabetic 32 gauge x #12 ea 04/06/22 04/05/23 Unknown Rx 1/4 (BD Ultra-Fine Micro Pen Needle) pen needle, diabetic 32 gauge x #450 ea 04/06/22 04/05/23 Unknown Rx (BD Virgen 2nd Gen Pen Needle) fentanyl 50 mcg/hr transdermal 1 patch transdermal Q72H 10/05/22 04/05/23 04/04/23 History patch on left breast metoprolol tartrate 50 mg tablet 50 mg PO BID #180 tabs 10/05/22 04/05/23 04/05/23 Rx insulin aspart U-100 100 unit/mL See Rx Instructions .Route 11/10/22 04/05/23 04/04/23 Rx (3 mL) subcutaneous pen (Novolog .COMPLEX #60 mL FlexPen U-100 Insulin aspart) evolocumab 140 mg/mL subcutaneous See Rx Instructions .Route 01/04/23 04/05/23 Unknown Rx pen injector (Repatha SureClick) .COMPLEX #6 mL flash glucose sensor (FreeStyle #6 ea 01/19/23 04/05/23 Unknown Rx Octavia 2 Sensor kit) secukinumab 150 mg/mL subcutaneous 300 mg (2 mL) SUBCUT .[id number] 90 01/19/23 04/05/23 27 Days Ago Rx pen injector (Cosentyx Pen) days #2 mL ~03/09/23 diclofenac sodium 75 mg 75 mg PO Q12H PRN moderate to 03/07/23 04/05/23 Unknown Rx tablet,delayed release severe pain as needed #30 tabs clindamycin HCl 300 mg capsule 300 mg PO TID 10 days #30 caps 03/30/23 04/05/23 04/05/23 Rx lidocaine 5 % topical ointment 1 applic topical DAILY PRN skin 03/30/23 04/05/23 Unknown Rx irritation #30 grams amlodipine 10 mg tablet 10 mg PO QAM 04/05/23 04/05/23 04/05/23 History escitalopram oxalate 10 mg tablet 10 mg PO QAM 04/05/23 04/05/23 04/05/23 History hydrocortisone acetate 25 mg 25 mg NE BID PRN Hemorrhoids 04/05/23 04/05/23 5 Days Ago History rectal suppository ~03/31/23 insulin detemir U-100 100 unit/mL 50 unit SUBCUT BID 04/05/23 04/05/23 04/05/23 History (3 mL) subcutaneous pen (Levemir FlexPen) leflunomide 10 mg tablet 20 mg PO DAILY 04/05/23 04/05/23 5 Days Ago History ~03/31/23 levothyroxine 100 mcg tablet 100 mcg PO QAM 04/05/23 04/05/23 04/05/23 History lisinopril 20 mg tablet 20 mg PO BID 04/05/23 04/05/23 04/05/23 History multivitamin 1 tab PO DAILY 04/05/23 04/05/23 3 Days Ago History ~04/02/23 ondansetron HCl 4 mg tablet 4 mg PO Q4H PRN Nausea And Vomiting 04/05/23 04/05/23 Unknown History temazepam 7.5 mg capsule (Restoril) 7.5 mg PO BEDTIME PRN sleep 04/05/23 04/05/23 04/04/23 History Allergies Allergy/AdvReac Type Severity Reaction Status Date / Time [facility] AdvReac NAUSEATED Verified 03/30/23 14:45 AND VOMITING Sulfa (Sulfonamide AdvReac Unknown Verified 03/30/23 14:45 Antibiotics) Current Medications Generic Name Dose Route Start Last Admin Trade Name Freq PRN Reason Stop Dose Admin Enoxaparin Sodium 40 mg 04/05/23 21:00 04/05/23 21:20 Enoxaparin 40 Mg/0.4 Ml Syringe SUBCUT 40 mg Q24H ALLI Administration Sodium Chloride 1,000 mls @ 75 mls/hr 04/05/23 19:59 04/05/23 21:11 Sodium Chloride 0.9% IV 75 mls/hr .[id number] ALLI Administration Vancomycin HCl 750 mg/ Sodium 250 mls @ 250 mls/hr 04/05/23 21:00 04/05/23 22:41 Chloride IV Infused Q24H ALLI Infusion Sodium Chloride 1,000 mls @ 30 mls/hr 04/06/23 06:30 04/06/23 06:37 Sodium Chloride 0.9% IV 30 mls/hr .Q24H ALLI Administration Insulin Glargine 25 unit 04/05/23 21:00 04/05/23 22:44 Insulin Glargine 100 Units/1 Ml SUBCUT Not Given BID ALLI Insulin Human Lispro 0 unit 04/05/23 19:59 04/05/23 21:20 Insulin Lispro 100 Unit/1 Ml SUBCUT Not Given TIDWM [facility] Protocol Lisinopril 20 mg 04/05/23 19:59 04/05/23 21:04 Lisinopril 20 Mg Tablet PO 20 mg BID ALLI Administration Metoprolol Tartrate 50 mg 04/05/23 19:59 04/05/23 21:04 Metoprolol Tartrate 50 Mg Tablet PO 50 mg BID ALLI Administration Morphine Sulfate 2 mg 04/05/23 19:59 04/06/23 01:32 Morphine 4 Mg/Ml Sdv 1 Ml IVP 2 mg Q4H PRN Administration SEVERE PAIN Ondansetron HCl 4 mg 04/05/23 19:59 04/05/23 21:04 Ondansetron 2 Mg/Ml Sdv 2 Ml IVP 4 mg Q8H PRN Administration vomiting, or N/V if npo Pantoprazole Sodium 40 mg 04/05/23 21:00 04/05/23 21:04 Pantoprazole 40 Mg Sdv IVP 40 mg Q24H ALLI Administration PFSH Anesthesia Medical History Diabetes mellitus type 2, uncontrolled Inflammatory arthritis Urolithiasis Diabetes H/O renal calculi Arthritis of knee Chronic cystitis Breast cancer 2008 Osteoarthritis Ankylosing spondylitis Immunization counseling High risk medication use Surgical History H/O mastectomy History of cholecystectomy Previous section H/O repair of left rotator cuff History of extraction of renal calculus Family History Other Ankylosing spondylitis Diabetes Hypertension Lupus Rheumatoid arthritis Stroke Social History Smoking and tobacco/nicotine status: never used tobacco/nicotine Alcohol intake: never Adopted: No Caregiver/support person: No Lives independently: No Household members: spouse Marital status: Current occupational status: retired Current gender identity: Female Data Anesthesia 04/06/23 05:01 04/06/23 05:01 Short CBC 04/05/23 04/06/23 Range/Units 12:35 05:01 WBC 9.88 6.34 (3.29-11.43) 10^3/uL Hgb 10.40 L 8.90 L (11.27-16.99) g/dL Hct 34.7 L 29.3 L (36-47) % MCV 94.8 92.7 (85-98) fl Plt Count 257 168 D (157-399) 10^3/cmm Neut % (Auto) 72.1 62.2 % Neut # (Auto) 7.12 3.94 (1.8-7.7) 10^3/uL BMP 04/05/23 04/06/23 12:35 05:01 Sodium 135 L 143 Potassium 4.7 4.6 Chloride 99 108 H Carbon Dioxide 24 25 BUN 18 12 Creatinine 1.1 H 1.0 H Glucose 285 H 91 Calcium 9.8 8.9 Liver Function 04/05/23 04/06/23 Range/Units 12:35 05:01 Total Bilirubin 0.4 0.4 (0.15-1.2) mg/dL AST 26 32 (0-32) U/L ALT 24 21 (0-33) U/L Alkaline Phosphatase 136 H 130 H (35-105) U/L Albumin 3.9 3.3 L (3.5-5.2) g/dL Coags 04/05/23 12:35 ESR 44 H C-Reactive Protein 107.0 H Microbiology 04/05/23 18:36 Blood Culture - Preliminary Blood SPECIMEN COLLECTED 04/05/23 18:33 Blood Culture - Preliminary Blood SPECIMEN COLLECTED Cardiac Studies: No Data to Display
[2023-04-06] MEDS: lidocaine-epi 1% 20 mL INJ INJECTION (07:25)
[2023-04-06] MEDS: BUPivacaine 0.5% INJ 10 mL INJECTION (07:25)
--- NOTE | 2023-04-06 07:34 | P.OP_ITS ---
Operative Report Date of procedure: April 06, 2023 Pre-op diagnosis: Perianal abscess Post-op diagnosis: Same Procedure done: Exam under anesthesia, incision and drainage of perianal abscess Pathology: Wound cultures x 2 Surgeon: Dixon Arriaza MD Litigation Legal Secretary: SOBIA OR Staff Estimated blood loss: 5 Complications: None Findings: there was a anterior anal abscess with a horseshoe configuration extending more into the left perianal margin and into the right. There was some spontaneous drainage from the right side of the anal margin, no deep collections noted, I could not identify a fistula tract during these intervention. Brief History: 63-year-old female who presents to the hospital with the Nehemias anal abscess that had failed antibiotic management as outpatient. CT scan show evidence of a anterior perianal abscess with a horseshoe configuration and a possible fistula tract on the left anal canal. Procedure: The patient was brought into the OR, placed in the supine position, anesthesia was given. Patient was placed on lithotomy and the perianal region was draped and prepped in the usual sterile fashion. A timeout was conducted. A field block with local anesthesia was given. And exam under anesthesia was done, no involvement of the rectal wall was noticed, majority of the fluid collection was noted to be on the left side of the anal margin. I then proceeded to make a 1 cm incision on the left anterior perianal region at the area of maximal fluctuance, immediate drainage of about 10 cc of purulent material was noticed. The wound was probed with a hemostat to ensure all loculations were broken, the wound was noted to communicate to the right side of the anal margin with an anterior configuration, I extended the right draining punctum to 0.5 cm in order to accommodate a drain. I used finger dissection to ensure all loculations were broken, the cavity was irrigated. Quarter inch Cheng drain was advanced from 1 wound to the outer and fixed in place. The wound on the left side of the perianal margin was then packed with quarter inch iodoform packing to ensure hemostasis. Patient tolerated well the procedure. At the end of the procedure all counts were correct, the patient was extubated and transferred to the PACU in stable condition.
--- NOTE | 2023-04-06 07:42 | PM.MISC ---
Miscellaneous Note Purpose of Documentation: Patient CARE update Note: I&D of perianal abscess done this morning. About 10 cc of purulent material was obtained. My recommendations are the following. ? Can advance diet as tolerated ? Continue IV antibiotic therapy ? I will do a dressing change tomorrow morning and after that patient can be discharged home with sitz bath's.
[2023-04-06] MEDS: cholecalciferol (vitamin D3) 1,000 unit Tablet 2000 UNIT PO (08:47)
[2023-04-06] MEDS: insulin glargine 100 units/1 mL 25 UNIT SUBCUT ×2 (08:47→17:30)
[2023-04-06] MEDS: lisinopril 20 mg Tablet PO ×2 (08:47→17:30)
[2023-04-06] MEDS: escitalopram 10 mg Tablet PO (08:47)
[2023-04-06] MEDS: metoprolol tartrate 50 mg Tablet PO ×2 (08:47→17:30)
[2023-04-06] MEDS: amlodipine 10 mg Tablet PO (08:48)
[2023-04-06] MEDS: levothyroxine 100 mcg Tablet PO (08:48)
--- NOTE | 2023-04-06 10:25 | PC.CHAP ---
Pastoral Care Encounter/Spiritual Assessment Type of Contact [] Declined spray crew visit [] Patient/Family/Request visit [] Outpatient visit [] Follow-up visit [] Physician referral [] Code/Alert [x] Routine visit [] Staff referral [] Actively dying [] Patient sleeping [] Family support [] [] Out of room [] Palliative care [] [] Receiving care in room [] Pre-surgical visit [] Trauma [] Long length of stay [] ICU visit [] Other: Relational/Emotional Strength [] Patient feels connected with others/family/visitors/staff [] Distress [] Loneliness/isolation [] Abandonment Spirituality of Patient [] Person of Radha [] Attends Faith of their Radha [] Believes in Prayer [] Reads Bible or Yazdanism materials [] There are Spiritual issues to be addressed Mill Platform Supervisor Interventions [x] Prayer [] Active listening [] Non-anxious presence [] Spiritual/emotional support [] Crisis/trauma care [] Spiritual counseling [] Bereavement support [] Provided bereavement packet [] Provided Bible/devotional materials [] Provided toy/stuffed animal, coloring book to patient or family member [] Provided Communion [] Anointing/[place] [] Salvation [] Completed spiritual assessment [] Other: Impact on Illness or Injury [] Angry [] Fearful [] Anxious [] Often cries [] Exhaustion [] Unable to work [] Unable to attend jain [] Unable to walk/stand [] Unable to read [] Unable to drive [] Unable to eat/drink [] Unable to sleep [] Unable to be with family [] Patient intubated [] Other: Summary Time spent with patient 10 min
[2023-04-06 11:51] LABS: Glucose Point of Care 111 mg/dL (70-110)
[2023-04-06] MEDS: fentaNYL 50 mcg Patch 1 PATCH TRANSDERMA (12:08)
--- NOTE | 2023-04-06 13:32 | PM.PN ---
Subjective Subjective: Patient was seen postoperatively, she is resting comfortably, no fevers, chills, no cough Vitals/I&O/Wt Last Vital Signs Temp 98.0 F 04/06/23 11:20 Pulse 74 04/06/23 11:20 Resp 16 04/06/23 12:17 BP 168/83 04/06/23 11:20 Pulse Ox 97 04/06/23 11:20 O2 Del Method Room Air 04/06/23 08:20 04/05/23 04/06/23 04/06/23 22:59 06:59 14:59 Intake Total 540 / 1540 520 / 520 Output Total 5 / Balance 540 / 1540 515 / 515 Weight last 48 hrs Weight 63.503 kg Weight 63.503 kg Weight 63.503 kg Physical Exam Const: COMMON NORMALS: no acute distress and patient oriented x3 Resp: COMMON NORMALS: normal respiratory effort, No retractions, No use of accessory muscles and clear to auscultation bilaterally AUSCULTATION: clear to auscultation bilaterally Cardio: COMMON NORMALS: regular rate, regular rhythm, S1 normal heart sound present and S2 normal heart sound present RATE: regular rate RHYTHM: regular rhythm HEART SOUNDS: S1 normal heart sound present and S2 normal heart sound present GI: COMMON NORMALS: Normal to inspection, nondistended, normoactive bowel sounds present and non-tender Extremity: COMMON NORMALS: no pedal edema Neuro: COMMON NORMALS: patient oriented x3 Psych: COMMON NORMALS: mental status grossly normal Data 04/06/23 05:01 04/06/23 05:01 Micro: Microbiology 04/06/23 07:18 Gram Stain - Final Buttock 04/05/23 18:36 Blood Culture - Preliminary Blood SPECIMEN COLLECTED 04/05/23 18:33 Blood Culture - Preliminary Blood SPECIMEN COLLECTED A&P Assessment and plan (1) Diabetes: Qualifiers: Diabetes mellitus complication status: without complication Diabetes mellitus long distance operator insulin use: with long distance operator use Diabetes mellitus type: type 2 Qualified Code(s): E11.9 - Type 2 diabetes mellitus without complications; Z79.4 - alf (current) use of insulin (2) Fistula, perirectal: (3) Abscess, perirectal: (4) Cellulitis of perianal area: (5) Hypertension: (6) Ankylosing spondylitis: Qualifiers: Ankylosing spondylitis location: multiple sites in spine Qualified Code(s): M45.0 - Ankylosing spondylitis of multiple sites in spine (7) Inflammatory arthritis: (8) Diabetes mellitus type 2, uncontrolled: (9) Hyperlipemia, mixed: (10) Hypothyroid: Plan Perirectal/perianal abscess, fistula IMPRESSION: 1. Low-attenuation peripherally enhancing perineal fluid collection with an upside down horseshoe configuration measuring 2.9 x 2.4 cm. 2. Apparent fistulous tract to the LEFT aspect of the anus near the 5 o'clock position suspicious for perianal fistula with abscess formation. Neoplasm should be excluded in a patient this age. 3. No other acute findings. 4. Prior hysterectomy. ? Status post incision and drainage, postop day 0 PLAN: -Continue vancomycin and zosyn -morphine IV for acute pain control -Chronic fentanyl patch to be changed tommorow -lantus 25 units BID, MDSS -General surgery on consult ? Full code, ? Lovenox for DVT prophylaxis #CODE STATUS, patient does not want to be resuscitated, is okay with intubation if required Attestations Medical Necessity Statement*: Patient requires hospitalization for perirectal perianal abscess, status post surgical drainage, continue IV antibiotics Diagnoses Diabetes E11.9; Z79.4 Diabetes mellitus complication status: without complication Diabetes mellitus detention insulin use: with detention use Diabetes mellitus type: type 2 Fistula, perirectal K60.4 Abscess, perirectal K61.1 Cellulitis of perianal area K61.0 Hypertension I10 Ankylosing spondylitis of multiple sites in spine M45.0 Ankylosing spondylitis location: multiple sites in spine Inflammatory arthritis M19.90 Diabetes mellitus type 2, uncontrolled Hyperlipemia, mixed E78.2 Hypothyroid E03.9
[2023-04-06] MEDS: sodium chloride 0.9% 1,000 ML 75 ML IV (14:06)
--- NOTE | 2023-04-06 14:11 | ANE.PACU2 ---
Inpatient post-anesthesia follow up: Airway intact: Yes Vital signs: Temperature 98.0 F Pulse Rate 74 Respiratory Rate 16 Blood Pressure 168/83 Pulse Oximetry 97 Oxygen Delivery Me thod Room Air Oxygen Flow Rate Fraction of Inspir ed Oxygen Hydration adequate: Yes Nausea and vomiting: No Pain level: 1 Mental status: Baseline
[2023-04-06 17:13] LABS: Glucose Point of Care 254 mg/dL (70-110)
[2023-04-06] MEDS: insulin lispro 100 unit/1 mL SUBCUT (17:30)
[2023-04-06] MEDS: acetaminophen 325 mg Tablet 650 MG PO (17:35)
[2023-04-06] MEDS: vancomycin 750 MG in sodium chloride 0.9% 250 ML 250 MG IV (20:31)
[2023-04-06] MEDS: enoxaparin 40 mg/0.4 mL Syringe SUBCUT (20:31)
[2023-04-06] MEDS: tizanidine 4 mg Tablet PO (20:31)
[2023-04-06] MEDS: pantoprazole 40 mg SDV IVP (20:32)
[2023-04-06 22:04] LABS: Glucose Point of Care 244 mg/dL (70-110)
[2023-04-07] VITALS: BP 121/54; PULSE 77; RESP 17; TEMP 37.1; O2SAT 91
[2023-04-07] MEDS: sodium chloride 0.9% 1,000 ML 75 ML IV (01:30)
[2023-04-07] MEDS: morphine 4 mg/mL SDV 1 mL 2 MG IVP ×2 (01:31→06:40)
[2023-04-07 04:00] VITALS: BP 147/72; PULSE 81; RESP 18; TEMP 36.6; O2SAT 93
[2023-04-07 05:09] LABS: Basophils % 0.5 %; Eosinophils # 0.2 10^3/uL (0.0-0.8); Eosinophils % 3.2 %; Hematocrit 30.2 % (36-47); Lymphocytes # 1.2 10^3/uL (0.8-4.8); Lymphocytes % 20.2 %; Mean Corpuscular HGB Conc 30.5 g/dL (30-55); Mean Corpuscular Hemoglobin 28.4 pg (27-33); Mean Corpuscular Volume 93.2 fl (85-98); Mean Platelet Volume 10.4 fL (7.4-10.4); Monocytes # 0.6 10^3/uL (0.2-0.9); Monocytes % 10.7 %; Neutrophils # 3.67 10^3/uL (1.8-7.7); Neutrophils % 64.7 %; Nucleated Red Blood Cells % 0 %; Platelet Count 164 10^3/cmm (157-399); Red Blood Count 3.24 10^6/uL (3.85-5.65); Red Cell Distribution Width 13.8 % (12.1-15.1); White Blood Count 5.68 10^3/uL (3.29-11.43)
[2023-04-07 05:27] LABS: Alanine Aminotransferase 18 U/L (0-33); Albumin Level 3.3 g/dL (3.5-5.2); Alkaline Phosphatase 134 U/L (35-105); Aspartate Amino Transferase 23 U/L (0-32); Blood Urea Nitrogen 10 mg/dL (8-23); Calcium 8.5 mg/dL (8.5-10.5); Carbon Dioxide 25 mmol/L (22-29); Chloride 105 mmol/L (98-107); Globulin 3.8 g/dL (1.3-4.6); Glomerular Filtration Rate 62.8 mL/min (90-130); Glucose 164 mg/dL (65-115); Magnesium 1.7 mg/dL (1.7-2.3); Osmolality Calculated 291 mOsm/kg (285-295); Phosphorus 1.4 mg/dL (2.5-4.5); Sodium 139 mmol/L (136-145); Total Bilirubin 0.3 mg/dL (0.15-1.2); Total Protein 7.1 g/dL (6.6-8.7)
[2023-04-07] MEDS: cholecalciferol (vitamin D3) 1,000 unit Tablet 2000 UNIT PO (05:43)
[2023-04-07] MEDS: escitalopram 10 mg Tablet PO (05:43)
[2023-04-07] MEDS: levothyroxine 100 mcg Tablet PO (05:43)
[2023-04-07] MEDS: amlodipine 10 mg Tablet PO (05:43)
[2023-04-07 07:34] VITALS: BP 157/75; PULSE 86; RESP 17; O2SAT 94
[2023-04-07 08:42] LABS: Glucose Point of Care 183 mg/dL (70-110)
[2023-04-07] MEDS: insulin lispro 100 unit/1 mL SUBCUT ×2 (09:36→12:15)
[2023-04-07] MEDS: insulin glargine 100 units/1 mL 25 UNIT SUBCUT (09:36)
[2023-04-07] MEDS: lisinopril 20 mg Tablet PO (09:37)
[2023-04-07] MEDS: metoprolol tartrate 50 mg Tablet PO (09:37)
--- NOTE | 2023-04-07 09:51 | P.DS_ITS ---
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: with termite control technician use Diabetes mellitus type: type 2 Qualified Code(s): E11.9 - Type 2 diabetes mellitus without complications; Z79.4 - intermediate manager (current) use of insulin (2) Fistula, perirectal: Status: Resolved (3) Abscess, perirectal: Status: Resolved (4) Cellulitis of perianal area: Status: Resolved (5) Hypertension: Status: Acute (6) Ankylosing spondylitis: Status: Acute Qualifiers: Ankylosing spondylitis location: multiple sites in spine Qualified Code(s): M45.0 - Ankylosing spondylitis of multiple sites in spine (7) Inflammatory arthritis: Status: Acute (8) Diabetes mellitus type 2, uncontrolled: Status: Acute (9) Hyperlipemia, mixed: Status: Acute (10) Hypothyroid: Status: Acute Reason for Visit Reason for Visit: rectal pain, nausea Hospital Course Hospital Course Yuliya Khan is a 63 year old female with a past medical history of rheumatoid arthritis, ankylosing spondylitis, history of insulin-dependent type 2 diabetes mellitus, history of recurrent hemorrhoids, hypertension, hyperlipidemia, chronic pain on fentanyl patch, who presents to [facility] due to perianal pain, and drainage. Patient tells me that she has hemorrhoids, that can be quite severe that frequently requires lancing. She started to develop a perianal bump, with drainage she thought it was a hemorrhoid, she saw her primary care, who diagnosed her with a perianal abscess, she was put on clindamycin, and advised to continue to monitor, she was continued to have swelling, pain, drainage, no fevers, chills, no cough, no abdominal pain, no lightheadedness, dizziness. Due to persistent pain, swelling, drainage she presented to the emergency room, she had a CAT scan performed which showed a perianal abscess fluid collection, with fistulous tract. Hospitalist team has been called for medical management, she is ambulatory, she cannot sit in bed due to severe pain, she has a 50 mcg fentanyl patch on right now, it is due to be changed tomorrow afternoon, she tells me her sugars have been well controlled, nothing greater than 200, she tells me, no hypoglycemia episodes, she has been holding her leflunomide, denies a history of Crohn's disease, denies a history of ulcerative colitis Patient was admitted to [facility] for abscess, perirectal, managed with antibiotic therapy, surgery was consulted status post I&D, will be di scharged on antibiotic therapy, discharged with with sitz bath 3 times daily, follow-up with outpatient follow-up with general surgery for removal of [place] during Physical Exam Const: COMMON NORMALS: no acute distress and patient oriented x3 Resp: COMMON NORMALS: normal respiratory effort, No retractions, No use of accessory muscles and clear to auscultation bilaterally AUSCULTATION: clear to auscultation bilaterally Cardio: COMMON NORMALS: regular rate, regular rhythm, S1 normal heart sound present and S2 normal heart sound present RATE: regular rate RHYTHM: regular rhythm HEART SOUNDS: S1 normal heart sound present and S2 normal heart sound present GI: COMMON NORMALS: Normal to inspection, nondistended, normoactive bowel sounds present and non-tender Extremity: COMMON NORMALS: no pedal edema Neuro: COMMON NORMALS: patient oriented x3 Psych: COMMON NORMALS: mental status grossly normal Discharge Data Studies Completed and Pending Completed Studies During Hospitalization Category Date Time Status CT abdomen pelvis w con* [id number] Stat Cat Scan 04/05/23 13:31 Completed XR chest 1V portable [id number] Stat Exams 04/05/23 17:51 Completed Pending at discharge Category Date Time Status Anaerobic Culture Routine Lab 04/06/23 07:18 Results Blood Culture Stat Lab 04/05/23 18:36 Results Complete Blood Count w/Auto AM LABS Lab 04/08/23 04:00 Ordered Comprehensive Metabolic Panel AM LABS Lab 04/08/23 04:00 Ordered Magnesium AM LABS Lab 04/08/23 04:00 Ordered Phosphorus AM LABS Lab 04/08/23 04:00 Ordered Wound Culture and Gram Stain Routine Lab 04/06/23 07:18 Results Radiology Impressions Chest X-Ray 04/05/23 17:51 IMPRESSION: No acute cardiopulmonary disease. Laboratory Results WBC 5.68 10^3/uL (3.29-11.43) 04/07/23 04:50 RBC 3.24 10^6/uL (3.85-5.65) L 04/07/23 04:50 Hgb 9.20 g/dL (11.27-16.99) L 04/07/23 04:50 Hct 30.2 % (36-47) L 04/07/23 04:50 MCV 93.2 fl (85-98) 04/07/23 04:50 MCH 28.4 pg (27-33) 04/07/23 04:50 MCHC 30.5 g/dL (30-55) 04/07/23 04:50 RDW 13.8 % (12.1-15.1) 04/07/23 04:50 Plt Count 164 10^3/cmm (157-399) 04/07/23 04:50 MPV 10.4 fL (7.4-10.4) 04/07/23 04:50 Neut % (Auto) 64.7 % 04/07/23 04:50 Lymph % (Auto) 20.2 % 04/07/23 04:50 Kimball % (Auto) 10.7 % 04/07/23 04:50 Eos % (Auto) 3.2 % 04/07/23 04:50 Baso % (Auto) 0.5 % 04/07/23 04:50 Neut # (Auto) 3.67 10^3/uL (1.8-7.7) 04/07/23 04:50 Lymph # (Auto) 1.2 10^3/uL (0.8-4.8) 04/07/23 04:50 Kimball # (Auto) 0.6 10^3/uL (0.2-0.9) 04/07/23 04:50 Eos # (Auto) 0.2 10^3/uL (0.0-0.8) 04/07/23 04:50 Baso # (Auto) 0.0 10^3/uL (0.0-0.1) 04/07/23 04:50 Nucleated RBC % (auto) 0 % 04/07/23 04:50 Nucleated RBCs # 0.0 /100WBC 04/07/23 04:50 ESR 44 mm/hr (0-15) H 04/05/23 12:35 Sodium 139 mmol/L (136-145) 04/07/23 04:50 Potassium 4.0 mmol/L (3.5-5.1) 04/07/23 04:50 Chloride 105 mmol/L (98-107) 04/07/23 04:50 Carbon Dioxide 25 mmol/L (22-29) 04/07/23 04:50 Anion Gap 13.0 (5-19) 04/07/23 04:50 BUN 10 mg/dL (8-23) 04/07/23 04:50 Creatinine 0.9 mg/dL (0.5-0.9) 04/07/23 04:50 GFR Calculation 62.8 mL/min (90-130) L 04/07/23 04:50 Glucose 164 mg/dL (65-115) H 04/07/23 04:50 POC Glucose 183 mg/dL (70-110) H 04/07/23 08:39 Estimat Average Glucose 200 04/05/23 12:35 Hemoglobin A1c 8.6 % (4.0-6.0) H 04/05/23 12:35 Calculated Osmolality 291 mOsm/kg (285-295) 04/07/23 04:50 Lactic Acid 1.6 mmol/L (0.5-2.2) 04/05/23 18:33 Calcium 8.5 mg/dL (8.5-10.5) 04/07/23 04:50 Phosphorus 1.4 mg/dL (2.5-4.5) L 04/07/23 04:50 Magnesium 1.7 mg/dL (1.7-2.3) 04/07/23 04:50 Total Bilirubin 0.3 mg/dL (0.15-1.2) 04/07/23 04:50 AST 23 U/L (0-32) 04/07/23 04:50 ALT 18 U/L (0-33) 04/07/23 04:50 Alkaline Phosphatase 134 U/L (35-105) H 04/07/23 04:50 C-Reactive Protein 107.0 mg/L (0.0-4.9) H 04/05/23 12:35 Total Protein 7.1 g/dL (6.6-8.7) 04/07/23 04:50 Albumin 3.3 g/dL (3.5-5.2) L 04/07/23 04:50 Globulin 3.8 g/dL (1.3-4.6) 04/07/23 04:50 Procalcitonin 0.18 ng/mL (0-0.5) 04/05/23 12:35 TSH 3.71 uIU/mL (0.27-4.20) 04/05/23 12:35 Vitals Last Vital Signs Temp 97.8 F 04/07/23 04:00 Pulse 86 04/07/23 07:34 Resp 17 04/07/23 07:34 BP 157/75 04/07/23 07:34 Pulse Ox 94 04/07/23 07:34 O2 Del Method Room Air 04/07/23 07:34 Discharge Plan Discharge Patient Disposition: Home Condition: Stable Prescriptions: New amoxicillin-pot clavulanate 875-125 mg tablet 1 tab PO BID 7 Days Qty: 14 0RF doxycycline hyclate 100 mg tablet 100 mg PO BID 7 Days Qty: 14 0RF Continued cholecalciferol (vitamin D3) 2,000 unit tablet 2,000 unit PO QAM fexofenadine-pseudoephedrine [Ariane-D 12 Hour] 60-120 mg tablet extended release 12 hr 1 tab PO Q12H PRN (Reason: Allergy Symptoms) hydrocodone-acetaminophen 10-325 mg tablet 0.5 - 1 tab PO Q4H PRN (Reason: Pain) tizanidine 4 mg tablet 4 mg PO Q12H PRN (Reason: Muscle Spasm) fentanyl 50 mcg/hr patch 72 hour 1 patch transdermal Q72H metoprolol tartrate 50 mg tablet 50 mg PO BID Qty: 180 11RF Cosentyx Pen 150 mg/mL pen injector 300 mg SUBCUT .E0vqfze 90 Days Qty: 2 3RF (DME) pen needle, diabetic [BD Ultra-Fine Micro Pen Needle] 32 gauge x 1/4 needle See Rx Instructions .ROUTE .MEDSUPPLY Qty: 12 3RF Rx Instructions: As directed (DME) pen needle, diabetic [BD Virgen 2nd Gen Pen Needle] 32 gauge x needle See Rx Instructions .ROUTE .MEDSUPPLY Qty: 450 3RF Rx Instructions: As directed hydrocortisone 2.5 % cream with perineal applicator 1 applic CA DAILY PRN (Reason: hemorrhoids) Qty: 30 0RF lidocaine 5 % ointment 1 applic topical DAILY PRN (Reason: skin irritation) Qty: 30 0RF (DME) FreeStyle Octavia 2 Elsa Misc See Rx Instructions .Route Qty: 1 0RF Rx Instructions: Check BS 4-6 times a day insulin aspart U-100 [Novolog FlexPen U-100 Insulin] 100 unit/mL (3 mL) insulin pen See Rx Instructions .ROUTE .COMPLEX Qty: 60 0RF Dose Instruction: inject 20 units SUBCUTANEOUSLY THREE TIMES DAILY 15 minutes BEFORE MEALS Rx Instructions: inject 20 units SUBCUTANEOUSLY THREE TIMES DAILY 15 minutes BEFORE MEALS Repatha SureClick 140 mg/mL pen injector See Rx Instructions .ROUTE .COMPLEX Qty: 6 0RF Dose Instruction: ADMINISTER 1 ML UNDER THE SKIN EVERY 2 WEEKS. Rx Instructions: ADMINISTER 1 ML UNDER THE SKIN EVERY 2 WEEKS. (DME) FreeStyle Octavia 2 Sensor Kit See Rx Instructions .Route Qty: 6 3RF Rx Instructions: Change every 14 days. diclofenac sodium 75 mg tablet,delayed release (DR/EC) 75 mg PO Q12H PRN (Reason: moderate to severe pain as needed) Qty: 30 1RF multivitamin Tablet 1 tab PO DAILY lisinopril 20 mg tablet 20 mg PO BID ondansetron HCl 4 mg tablet 4 mg PO Q4H PRN (Reason: Nausea And Vomiting) leflunomide 10 mg tablet 20 mg PO DAILY Rx Instructions: (on hold till finishing clindamycin) Restoril 7.5 mg capsule 7.5 mg PO BEDTIME PRN (Reason: sleep) Rx Instructions: out as of 04/04/23-rx filled 03/30/23 5d/s hydrocortisone acetate 25 mg suppository 25 mg CA BID PRN (Reason: Hemorrhoids) levothyroxine 100 mcg tablet 100 mcg PO QAM amlodipine 10 mg tablet 10 mg PO QAM escitalopram oxalate 10 mg tablet 10 mg PO QAM Changed Levemir FlexPen 100 unit/mL (3 mL) insulin pen 25 unit SUBCUT BID Qty: 15 0RF Discontinued clindamycin HCl 300 mg capsule 300 mg PO TID 10 Days Qty: 30 0RF Rx Instructions: for 10 days (rx filled 03/30/23) Discharge Orders: Discharge Order (Routine); Ordered 04/07/23 Ordered By: Ezequiel Painter Referrals: Dixon Arriaza MD [Physician] - (We have notified your physician's clinic of the need for a follow-up appointment to be scheduled. If you have not heard from them within the next 2 business days, please call them directly. ) Felton Newsome MD [Primary Care Provider] - (We have notified your physician's clinic of the need for a follow-up appointment to be scheduled. If you have not heard from them within the next 2 business days, please call them directly. ) Discharge Diet: Cardiac Discharge Activity: Resume usual activity Patient Instructions: Cellulitis, Doxycycline (By mouth), Amoxicillin/Clavulanate Potassium (By mouth), Acute Wound Care (DC), Incision and Drainage (DC), Opioid Safety Discharge Attestations Time Spent in Discharge Care*: greater than 30 min Quality Metrics Clinical Quality Measures [ No reported AMI, CVA or VTE this stay] Coding Level of Care Code 00386 Total time (in minutes) for Discharge: 45 Diagnoses Diabetes E11.9; Z79.4 Diabetes mellitus complication status: without complication Diabetes mellitus prison insulin use: with termite control technician use Diabetes mellitus type: type 2 Fistula, perirectal K60.4 Abscess, perirectal K61.1 Cellulitis of perianal area K61.0 Hypertension I10 Ankylosing spondylitis of multiple sites in spine M45.0 Ankylosing spondylitis location: multiple sites in spine Inflammatory arthritis M19.90 Diabetes mellitus type 2, uncontrolled Hyperlipemia, mixed E78.2 Hypothyroid E03.9
[2023-04-07 10:39] VITALS: BP 143/65; PULSE 80; TEMP 36.7; O2SAT 93
[2023-04-07 11:01] LABS: Glucose Point of Care 145 mg/dL (70-110)
--- NOTE | 2023-04-07 12:24 | P.PN_ITS ---
Subjective 2 Subjective: Postoperative day 1 status post I&D of perianal abscess. Patient is doing well. Only concern is when questions regarding self-care at home, she had a bowel movement and was concerned that this will soil the wound and prevent healing. She has mild pain in the area and minimal discharge. Vitals/I&O/Wt Last Vital Signs Temp 98.0 F 04/07/23 10:39 Pulse 80 04/07/23 10:39 Resp 17 04/07/23 07:34 BP 143/65 04/07/23 10:39 Pulse Ox 93 04/07/23 10:39 O2 Del Method Room Air 04/07/23 10:39 04/06/23 04/07/23 04/07/23 22:59 06:59 14:59 Intake Total 370 / 1890 855 / 2745 240 / 240 Balance 370 / 1885 855 / 2740 240 / 240 Weight last 48 hrs Weight 157 lb 8 oz Weight 140 lb Weight 140 lb Physical Exam 2 GI: OTHER: Rectal examination shows evidence of a clean wound, there is a [place] drain, there is minimal drainage, packing was removed no evidence of further purulence or induration. Data 04/07/23 04:50 04/07/23 04:50 Micro: Microbiology 04/05/23 18:36 Blood Culture - Preliminary Blood NEGATIVE TO DATE 04/05/23 18:33 Blood Culture - Preliminary Blood NEGATIVE TO DATE 04/06/23 07:18 Gram Stain - Final Buttock A&P Assessment and plan (1) Abscess, perirectal: Plan 63-year-old female with multiple medical comorbidities who presented with a perianal abscess. She underwent I&D and Cheng drain placement, she is doing well this morning, white count has remained normal. Induration has resolved but there is minimal drainage from the wound. I have provided further instructions regarding wound care to the patient, I have instructed to do 3 times a day sitz bath's and to clean her anal region with water and soap whenever she showers and with water after bowel movements. Patient shows understanding and there was ample time for asking questions and all questions were answered in a satisfactory fashion. I will follow-up with the patient next Tuesday for possible removal of the [place] drain. In addition she will receive a 7-day course of antibiotic, will need to order the culture sensitivities to modify antibiotics as needed. Attestations 2 Medical Necessity Statement*: Patient is cleared for discharge from the general surgery standpoint. Coding Level of Care Code Acute Code for g Fwd Diagnoses Abscess, perirectal K61.1
[2023-04-07 13:57] VITALS: BP 143/65; PULSE 80; TEMP 36.7; O2SAT 93
== END 2023-04-07 13:59 | disposition home or self-care (01) ==
LOC: ER 17:13 → MEDSURG 19:46
PROVIDERS: Surgery; Admitting Provider Family Medicine; Emergency Provider Emergency Medicine; PCP Family Medicine; Visit Provider Family Medicine
PROC: (CPT 46050; principal; 2023-04-06 07:00)
DX: K61.0 Anal abscess (principal); E11.9 Type 2 diabetes mellitus without complications; Z79.4 Long term (current) use of insulin; K60.4 Rectal fistula; K61.1 Rectal abscess; I10 Essential (primary) hypertension; M45.0 Ankylosing spondylitis of multiple sites in spine; E78.2 Mixed hyperlipidemia; E03.9 Hypothyroidism, unspecified; M06.9 Rheumatoid arthritis, unspecified; G89.29 Other chronic pain; Z79.891 Long term (current) use of opiate analgesic; Z90.710 Acquired absence of both cervix and uterus; Z85.3 Personal history of malignant neoplasm of breast
CPT/HCPCS: 46050; 36415; 36416; 71045; 74177; 80053; 82962; 83036; 83605; 83735; 84100; 84145; 84443; 85025; 85651; 86140; 87040; 87070; 87075; 87077; 87205; 93005; 94664; 96365; 96372; 96375; 99285; C9113; G0378; J1200; J1650; J1815; J2270; J2371; J2405; J2543; J2704; J3010; J3370; J3490; J7030; J7050; Q9967

== ENCOUNTER → 2023-04-12 09:25 | Outpatient (BNVA) | payer MEDICARE, SELFPAY | PROVIDERS: PCP Family Medicine; Visit Provider Surgery | DX: Z98.890 Other specified postprocedural states (principal) | CPT/HCPCS: 99024 ==

== ENCOUNTER → 2023-04-26 09:29 | Outpatient (BNVA) | payer MEDICARE, SELFPAY | PROVIDERS: PCP Family Medicine; Visit Provider Surgery | DX: Z98.890 Other specified postprocedural states (principal) | CPT/HCPCS: 99024 ==

== ENCOUNTER → 2023-05-11 09:47 | Outpatient (BNVA) | payer MEDICARE, SELFPAY | PROVIDERS: PCP Family Medicine; Visit Provider Internal Medicine | DX: E03.9 Hypothyroidism, unspecified (principal); E11.9 Type 2 diabetes mellitus without complications; Z79.4 Long term (current) use of insulin; E78.2 Mixed hyperlipidemia; N39.0 Urinary tract infection, site not specified; Z78.9 Other specified health status; Z79.890 Hormone replacement therapy | CPT/HCPCS: 99215 ==

== ENCOUNTER 2023-05-11 11:04 | Emergency (ER) | payer MEDICARE, SELFPAY ==
[2023-05-11 11:10] VITALS: BP 105/65; PULSE 62; RESP 18; TEMP 36.6; O2SAT 97; BMI 27.1
--- NOTE | 2023-05-11 11:16 | ECG_ITS ---
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 Measurements Intervals [place] Rate: 59 P: 36 NM: 182 QRS: 1 QRSD: 92 T: 57 QT: 418 QTc: 415 Interpretive Statements SINUS BRADYCARDIA LOW QRS VOLTAGE IN PRECORDIAL LEADS [QRS DEFLECTION < 1.0 mV IN CHEST LEADS] POSSIBLE ANTERIOR MYOCARDIAL INFARCTION , OF INDETERMINATE AGE [30 ms Q WAVE IN V3/V4, OR R < 0.2 mV IN V4] Compared to ECG 04/05/2023 18:07:00 Low QRS voltage now present Myocardial infarct finding now present Sinus rhythm no longer present Electronically Signed On 05-11-2023 12:49:55 PROGRESS MAN by Ministerio Smallwood M.D. [email or web address]
--- NOTE | 2023-05-11 11:41 | XR_ITS ---
WS: [id number] Portable AP upright chest, 05/11/2023 Clinical Data: shortness of brath Comparison: Portable chest, 04/05/2023 Findings: No nodules, masses or effusions are seen. The heart is normal. The pulmonary vascularity is not increased. No pneumonia or pneumothorax is seen. Impression: Negative chest.
[2023-05-11 12:13] VITALS: BP 111/69; BP 137/68; BP 144/77; PULSE 62; PULSE 63; PULSE 65
[2023-05-11 12:13] LABS: Basophils # 0.1 10^3/uL (0.0-0.1); Basophils % 0.8 %; Eosinophils # 0.3 10^3/uL (0.0-0.8); Eosinophils % 3.6 %; Hematocrit 39.2 % (36-47); Lymphocytes # 1.7 10^3/uL (0.8-4.8); Lymphocytes % 22.9 %; Mean Corpuscular HGB Conc 30.6 g/dL (30-55); Mean Corpuscular Volume 91.4 fl (85-98); Mean Platelet Volume 11.1 fL (7.4-10.4); Monocytes # 0.7 10^3/uL (0.2-0.9); Monocytes % 9.9 %; Neutrophils # 4.68 10^3/uL (1.8-7.7); Neutrophils % 62.4 %; Nucleated Red Blood Cells % 0 %; Platelet Count 263 10^3/cmm (157-399); Red Blood Count 4.29 10^6/uL (3.85-5.65); Red Cell Distribution Width 13.7 % (12.1-15.1)
--- NOTE | 2023-05-11 12:24 | PC.NURSE ---
Pt placed on bedside mold closer
[2023-05-11 12:35] LABS: Alanine Aminotransferase 42 U/L (0-33); Albumin Level 4.3 g/dL (3.5-5.2); Alkaline Phosphatase 131 U/L (35-105); Anion Gap 17.4 (5-19); Aspartate Amino Transferase 51 U/L (0-32); Blood Urea Nitrogen 22 mg/dL (8-23); Calcium 9.4 mg/dL (8.5-10.5); Carbon Dioxide 25 mmol/L (22-29); Chloride 96 mmol/L (98-107); Globulin 4.3 g/dL (1.3-4.6); Glomerular Filtration Rate 26.5 mL/min (90-130); Glucose 210 mg/dL (65-115); Osmolality Calculated 288 mOsm/kg (285-295); Potassium 4.4 mmol/L (3.5-5.1); Sodium 134 mmol/L (136-145); Total Bilirubin 0.4 mg/dL (0.15-1.2); Total Protein 8.6 g/dL (6.6-8.7)
[2023-05-11 12:36] LABS: Lactic Sepsis W/Reflex 1.5 mmol/L (0.5-2.2)
[2023-05-11 12:40] LABS: Procalcitonin 0.26 ng/mL (0-0.5)
--- NOTE | 2023-05-11 12:51 | ED_ITS ---
HPI - Dizziness 2 General: Chief Complaint: Dizziness Stated Complaint: BP, dizzy, Nausea, sent from endocronology Time Seen by Provider: 05/11/23 12:43 History of Present Illness: HPI Narrative: 63-year-old female with a history of ruth betes and hypertension who presents to the emergency room with lightheadedness and hypotension. She was at endocrinology clinic for routine visit. She said she was feeling lightheaded and slightly nauseous and was sent to the emergency room because her blood pressure was found to be in the 90s. She states she had not eaten anything today and felt a bit dehydrated. No chest pain. No shortness of breath. No cough. No fevers. No dysuria. No abdominal pain. Review of Systems 2 Narrative: Constitutional symptoms: Negative except as documented in HPI. Skin symptoms: Negative except as documented in HPI. Eye symptoms: Negative except as documented in HPI. ENMT symptoms: Negative except as documented in HPI. Respiratory symptoms: Negative except as documented in HPI. Cardiovascular symptoms: Negative except as documented in HPI. Gastrointestinal symptoms: Negative except as documented in HPI. Genitourinary symptoms: Negative except as documented in HPI. Musculoskeletal symptoms: Negative except as documented in HPI. Neurologic symptoms: Negative except as documented in HPI. Psychiatric symptoms: Negative except as documented in HPI. Endocrine symptoms: Negative except as documented in HPI. PFSH ED 2 PFSH: Medical History Diabetes mellitus type 2, uncontrolled Inflammatory arthritis Urolithiasis Diabetes H/O renal calculi Arthritis of knee Chronic cystitis Breast cancer 2008 Osteoarthritis Ankylosing spondylitis Immunization counseling High risk medication use Surgical History History of incision and drainage 04/06/23 Dr Arriaza Exam under anesthesia, incision and drainage of perianal abscess H/O mastectomy History of cholecystectomy Previous section H/O repair of left rotator cuff History of extraction of renal calculus Family History Other Ankylosing spondylitis Diabetes Hypertension Lupus Rheumatoid arthritis Stroke Social History Smoking and tobacco/nicotine status: never used tobacco/nicotine Alcohol intake: never Adopted: No Caregiver/support person: No Lives independently: No Household members: spouse Marital status: Current occupational status: retired Current gender identity: Female Physical Exam 2 Narrative: EXAM NARRATIVE: General: Alert, no acute distress. Skin: Warm, dry. Head: Normocephalic, atraumatic. Neck: Supple, trachea midline. Eye: Extraocular movements are intact. Ears, nose, mouth and throat: Dry oral mucosa Cardiovascular: Regular, Normal peripheral perfusion. Respiratory: Lungs are clear to auscultation, respirations are non-labored, breath sounds are equal, Symmetrical chest wall expansion. Gastrointestinal: Soft, Nontender, Non distended, Normal bowel sounds. Musculoskeletal: Normal ROM, no deformity. Neurological: Alert and oriented to person, place, time, and situation, No focal neurological deficit observed. Psychiatric: Cooperative, appropriate mood & affect. Course 2 Vital Signs: Vital signs: Vital Signs Temperature 98 F 05/11/23 11:10 Pulse Rate 63 05/11/23 16:00 Respiratory Rate 14 05/11/23 16:00 Blood Pressure 150/76 05/11/23 16:00 Pulse Oximetry 96 05/11/23 16:00 Oxygen Delivery Me thod Room Air 05/11/23 15:58 MDM - Dizziness Medical Decision Making Patient has hypotension and syncope. Concern for dehydration. Anemia. Renal failure. Infections such as pneumonia or urinary tract infection. CBC and a BMP and a urinalysis were ordered to evaluate. She does appear dehydrated on exam so fluids were given. Lab Data 05/11/23 12:05 05/11/23 12:05 Laboratory Results WBC 7.50 10^3/uL (3.29-11.43) 05/11/23 12:05 RBC 4.29 10^6/uL (3.85-5.65) 05/11/23 12:05 Hgb 12.00 g/dL (11.27-16.99) 05/11/23 12:05 Hct 39.2 % (36-47) 05/11/23 12:05 MCV 91.4 fl (85-98) 05/11/23 12:05 MCH 28.0 pg (27-33) 05/11/23 12:05 MCHC 30.6 g/dL (30-55) 05/11/23 12:05 RDW 13.7 % (12.1-15.1) 05/11/23 12:05 Plt Count 263 10^3/cmm (157-399) 05/11/23 12:05 MPV 11.1 fL (7.4-10.4) H 05/11/23 12:05 Neut % (Auto) 62.4 % 05/11/23 12:05 Lymph % (Auto) 22.9 % 05/11/23 12:05 Brooke % (Auto) 9.9 % 05/11/23 12:05 Eos % (Auto) 3.6 % 05/11/23 12:05 Baso % (Auto) 0.8 % 05/11/23 12:05 Neut # (Auto) 4.68 10^3/uL (1.8-7.7) 05/11/23 12:05 Lymph # (Auto) 1.7 10^3/uL (0.8-4.8) 05/11/23 12:05 Brooke # (Auto) 0.7 10^3/uL (0.2-0.9) 05/11/23 12:05 Eos # (Auto) 0.3 10^3/uL (0.0-0.8) 05/11/23 12:05 Baso # (Auto) 0.1 10^3/uL (0.0-0.1) 05/11/23 12:05 Nucleated RBC % (auto) 0 % 05/11/23 12:05 Nucleated RBCs # 0.0 /100WBC 05/11/23 12:05 Sodium 134 mmol/L (136-145) L 05/11/23 12:05 Potassium 4.4 mmol/L (3.5-5.1) 05/11/23 12:05 Chloride 96 mmol/L (98-107) L 05/11/23 12:05 Carbon Dioxide 25 mmol/L (22-29) 05/11/23 12:05 Anion Gap 17.4 (5-19) 05/11/23 12:05 BUN 22 mg/dL (8-23) 05/11/23 12:05 Creatinine 1.9 mg/dL (0.5-0.9) H 05/11/23 12:05 GFR Calculation 26.5 mL/min (90-130) L 05/11/23 12:05 Glucose 210 mg/dL (65-115) H 05/11/23 12:05 Calculated Osmolality 288 mOsm/kg (285-295) 05/11/23 12:05 Lactic Acid 1.5 mmol/L (0.5-2.2) 05/11/23 12:05 Calcium 9.4 mg/dL (8.5-10.5) 05/11/23 12:05 Total Bilirubin 0.4 mg/dL (0.15-1.2) 05/11/23 12:05 AST 51 U/L (0-32) H 05/11/23 12:05 ALT 42 U/L (0-33) H 05/11/23 12:05 Alkaline Phosphatase 131 U/L (35-105) H 05/11/23 12:05 Total Protein 8.6 g/dL (6.6-8.7) 05/11/23 12:05 Albumin 4.3 g/dL (3.5-5.2) 05/11/23 12:05 Globulin 4.3 g/dL (1.3-4.6) 05/11/23 12:05 Procalcitonin 0.26 ng/mL (0-0.5) 05/11/23 12:05 Urine Color Yellow (Yellow) 05/11/23 14:55 Urine Appearance Clear (CLEAR) 05/11/23 14:55 Urine pH 5 (5-7) 05/11/23 14:55 Ur Specific [place] 1.010 (1.005-1.030) 05/11/23 14:55 Urine Protein Neg (Negative) 05/11/23 14:55 Urine Glucose (UA) Norm (Normal) 05/11/23 14:55 Urine Ketones Negative (Negative) 05/11/23 14:55 Urine Blood Neg (Negative) 05/11/23 14:55 Urine Nitrate Negative (Negative) 05/11/23 14:55 Urine Bilirubin Neg (Negative) 05/11/23 14:55 Urine Urobilinogen Norm mg/dL (Negative) 05/11/23 14:55 Ur Leukocyte Esterase Negative (Negative) 05/11/23 14:55 Urine RBC None /hpf (0-2) 05/11/23 14:55 Urine WBC None /hpf (0-5) 05/11/23 14:55 Ur Squamous Epith Cells None /hpf (0-5) 05/11/23 14:55 Amorphous Sediment Not Reportable 05/11/23 14:55 Urine Bacteria None /hpf (NONE) 05/11/23 14:55 Urine Mucus None /hpf 05/11/23 14:55 Influenza Type A Ag Negative (Negative) 05/11/23 12:28 Influenza Type B Ag Negative (Negative) 05/11/23 12:28 Review of lab work shows no UTI. She does have a slight bump in her creatinine. She has some baseline renal dysfunction but this is worsened today. Flu and COVID were negative. No radiology studies performed this visit Other Data -1.5 L normal saline bolus. Patient's blood pressure is improved greatly. She says she is feels better and wants to go home. No evidence of infection or other pathology at this time. Given her bump in her creatinine she likely is just dehydrated. - Discharged home - Discussed findings and plan with patient. Answered any questions. - All laboratory values were reviewed and interpreted personally by myself, the ER physician - Evaluation and treatment of this problem were appropriate in the emergency setting Discharge Plan Discharge Patient Disposition: Home Clinical Impression: Acute dehydration, Acute on chronic renal insufficiency, Syncope Condition: Stable Prescriptions: No Action cholecalciferol (vitamin D3) 2,000 unit tablet 2,000 unit PO QAM fexofenadine-pseudoephedrine [Ariane-D 12 Hour] 60-120 mg tablet extended release 12 hr 1 tab PO Q12H PRN (Reason: Allergy Symptoms) hydrocodone-acetaminophen 10-325 mg tablet 0.5 - 1 tab PO Q4H PRN (Reason: Pain) tizanidine 4 mg tablet 4 mg PO Q12H PRN (Reason: Muscle Spasm) fentanyl 50 mcg/hr patch 72 hour 1 patch transdermal Q72H metoprolol tartrate 50 mg tablet 50 mg PO BID Qty: 180 11RF Cosentyx Pen 150 mg/mL pen injector 300 mg SUBCUT .B1cfgrb 90 Days Qty: 2 3RF (DME) pen needle, diabetic [BD Ultra-Fine Micro Pen Needle] 32 gauge x 1/4 needle See Rx Instructions .ROUTE .MEDSUPPLY Qty: 12 3RF Rx Instructions: As directed hydrocortisone 2.5 % cream with perineal applicator 1 applic [place] DAILY PRN (Reason: hemorrhoids) Qty: 30 0RF lidocaine 5 % ointment 1 applic topical DAILY PRN (Reason: skin irritation) Qty: 30 0RF (DME) FreeStyle Octavia 2 [place] Misc See Rx Instructions .Route Qty: 1 0RF Rx Instructions: Check BS 4-6 times a day Repatha SureClick 140 mg/mL pen injector See Rx Instructions .ROUTE .COMPLEX Qty: 6 0RF Dose Instruction: ADMINISTER 1 ML UNDER THE SKIN EVERY 2 WEEKS. Rx Instructions: ADMINISTER 1 ML UNDER THE SKIN EVERY 2 WEEKS. (DME) FreeStyle Octavia 2 Sensor Kit See Rx Instructions .Route Qty: 6 3RF Rx Instructions: Change every 14 days. (DME) pen needle, diabetic [BD Virgen 2nd Gen Pen Needle] 32 gauge x 5/32 needle See Rx Instructions .ROUTE .MEDSUPPLY Qty: 450 0RF Rx Instructions: As directed Levemir FlexPen 100 unit/mL (3 mL) insulin pen See Rx Instructions .ROUTE .COMPLEX Qty: 90 0RF Dose Instruction: inject 50 units SUBCUTANEOUSLY TWICE DAILY Rx Instructions: inject 50 units SUBCUTANEOUSLY TWICE DAILY insulin aspart U-100 [Novolog FlexPen U-100 Insulin] 100 unit/mL (3 mL) insulin pen See Rx Instructions .ROUTE .COMPLEX Qty: 60 0RF Dose Instruction: inject 20 units SUBCUTANEOUSLY THREE TIMES DAILY 15 minutes BEFORE MEALS Rx Instructions: inject 20 units SUBCUTANEOUSLY THREE TIMES DAILY 15 minutes BEFORE MEALS diclofenac sodium 75 mg tablet,delayed release (DR/EC) 75 mg PO Q12H PRN (Reason: moderate to severe pain as needed) Qty: 30 1RF multivitamin Tablet 1 tab PO DAILY lisinopril 20 mg tablet 20 mg PO BID ondansetron HCl 4 mg tablet 4 mg PO Q4H PRN (Reason: Nausea And Vomiting) leflunomide 10 mg tablet 20 mg PO DAILY Rx Instructions: (on hold till finishing clindamycin) temazepam [Restoril] 7.5 mg capsule 7.5 mg PO BEDTIME PRN (Reason: sleep) hydrocortisone acetate 25 mg suppository 25 mg [place] BID PRN (Reason: Hemorrhoids) amlodipine 10 mg tablet 10 mg PO QAM escitalopram oxalate 10 mg tablet 10 mg PO QAM levothyroxine 100 mcg tablet 100 mcg PO DAILY Discharge Orders: Discharge ED (Routine); Ordered 05/11/23 Ordered By: Barbara Radford Referrals: Felton Newsome MD [Primary Care Provider] - 4-7 days (You have been screened and evaluated and felt safe for discharge. Health conditions do change or evolve sometimes and as such it is important that you follow up with your Primary Doctor to be re checked, 3-5 days is a general good time frame for follow up. You are always welcome to return to the ED for re assessment if your symptoms are worsening or you have new concerns) Discharge Diet: Usual diet Discharge Activity: Resume usual activity Patient Instructions: Opioid Safety, Pain Management Coding Level of Care Code ED Chef Saucier for Dave Jackson
[2023-05-11] MEDS: sodium chloride 0.9% 1,000 ML 999 ML IV (12:59)
[2023-05-11 13:50] LABS: Influenza A by IFA Negative (Negative); Influenza B by IFA Negative (Negative)
[2023-05-11] MEDS: sodium chloride 0.9% 500 ML 999 ML IV (14:51)
[2023-05-11 14:57] VITALS: BP 152/68; PULSE 67; RESP 18; O2SAT 99
--- NOTE | 2023-05-11 14:58 | PC.NURSE ---
Pt was up to bathroom ambulatory with assistance. Tolerated activity well, denies dizziness or room spinning with activity
[2023-05-11 15:58] VITALS: BP 158/67; PULSE 64; RESP 18; O2SAT 98
[2023-05-11 16:00] VITALS: BP 150/76; PULSE 63; RESP 14; O2SAT 96
[2023-05-11 16:21] LABS: Bilirubin Urine Neg (Negative); Blood Urine Neg (Negative); Glucose Urine UA Norm (Normal); Ketones Urine Negative (Negative); Leukocyte Esterase Urine Negative (Negative); Nitrate Urine Negative (Negative); Protein Urine Neg (Negative); Urine Appearance Clear (CLEAR); Urine Color Yellow (Yellow); Urobilinogen Urine Norm (Negative); pH Urine 5 (5-7)
[2023-05-11 16:23] LABS: Add Urine Culture? No
[2023-05-11 16:46] VITALS: BP 150/76; PULSE 63; RESP 14; TEMP 36.6; O2SAT 96
[2023-05-11 17:38] LABS: Adenovirus Not Detected (NOT DETECT); Chlamydia Pneumoniae Not Detected (NOT DETECT); Coronavirus 229E,HKU1,NL63,OC4 Not Detected (NOT DETECT); Human Metapneumovirus Not Detected (NOT DETECT); Human Rhinovirus/Enterovirus Not Detected (NOT DETECT); Influenza A Not Detected (NOT DETECT); Influenza A H1 Not Detected (NOT DETECT); Influenza A H1-2009 Not Detected (NOT DETECT); Influenza A H3 Not Detected (NOT DETECT); Influenza B Not Detected (NOT DETECT); Mycoplasma Pneumoniae Not Detected (NOT DETECT); Parainfluenza Virus Type 1 Not Detected (NOT DETECT); Parainfluenza Virus Type 2 Not Detected (NOT DETECT); Parainfluenza Virus Type 3 Not Detected (NOT DETECT); Parainfluenza Virus Type 4 Not Detected (NOT DETECT); Respiratory Syncytial Virus A Not Detected (NOT DETECT); Respiratory Syncytial Virus B Not Detected (NOT DETECT); SARS-COV-2 Not Detected (NOT DETECT)
== END 2023-05-11 16:48 | disposition home or self-care (01) ==
PROVIDERS: Emergency Provider Emergency Medicine; PCP Family Medicine
DX: E11.22 Type 2 diabetes mellitus with diabetic chronic kidney disease (principal); N18.9 Chronic kidney disease, unspecified; Z85.3 Personal history of malignant neoplasm of breast; R55 Syncope and collapse; E86.0 Dehydration; Z79.82 Long term (current) use of aspirin; Z11.52 Encounter for screening for COVID-19; E11.9 Type 2 diabetes mellitus without complications; E03.9 Hypothyroidism, unspecified; E78.2 Mixed hyperlipidemia; N39.0 Urinary tract infection, site not specified; Z78.9 Other specified health status; Z79.4 Long term (current) use of insulin; Z79.890 Hormone replacement therapy
CPT/HCPCS: 36415; 71045; 80053; 81001; 83605; 84145; 85025; 87040; 87635; 87804; 93005; 96360; 96361; 99215; 99285; J7030; J7040

== ENCOUNTER → 2023-05-18 14:08 | Outpatient (BNVA) | payer MEDICARE, SELFPAY | PROVIDERS: PCP Family Medicine; Visit Provider Internal Medicine Rheumatology | DX: M45.0 Ankylosing spondylitis of multiple sites in spine (principal); Z71.89 Other specified counseling; Z79.899 Other long term (current) drug therapy; M17.0 Bilateral primary osteoarthritis of knee | CPT/HCPCS: 80053; 99214 ==

== ENCOUNTER → 2023-05-25 11:12 | Outpatient (BNVA) | payer MEDICARE, SELFPAY | PROVIDERS: PCP Family Medicine; Visit Provider Internal Medicine | DX: Z79.4 Long term (current) use of insulin; E78.2 Mixed hyperlipidemia; E03.9 Hypothyroidism, unspecified; N39.0 Urinary tract infection, site not specified; Z78.9 Other specified health status; E11.22 Type 2 diabetes mellitus with diabetic chronic kidney disease; N18.9 Chronic kidney disease, unspecified; Z79.890 Hormone replacement therapy | CPT/HCPCS: 99214 ==

== ENCOUNTER → 2023-05-31 15:58 | Outpatient (BNVA) | payer MEDICARE, SELFPAY | PROVIDERS: PCP Family Medicine; Visit Provider Family Medicine | DX: R79.89 Other specified abnormal findings of blood chemistry (principal) | CPT/HCPCS: 80053 ==

== ENCOUNTER → 2023-06-03 09:54 | Outpatient (BNVA) | payer MEDICARE, SELFPAY | PROVIDERS: PCP Family Medicine; Visit Provider Surgery | DX: K61.0 Anal abscess (principal) | CPT/HCPCS: 99212 ==

== ENCOUNTER → 2023-07-05 11:55 | Outpatient (BNVA) | payer MEDICARE, SELFPAY | PROVIDERS: PCP Family Medicine; Visit Provider Family Medicine | DX: I10 Essential (primary) hypertension (principal) | CPT/HCPCS: 80053 ==

== ENCOUNTER → 2023-08-25 10:55 | Outpatient (BNVA) | payer MEDICARE, SELFPAY | PROVIDERS: PCP Family Medicine; Visit Provider Internal Medicine | DX: E11.9 Type 2 diabetes mellitus without complications (principal); E03.9 Hypothyroidism, unspecified; E78.2 Mixed hyperlipidemia; N39.0 Urinary tract infection, site not specified; Z78.9 Other specified health status; Z79.890 Hormone replacement therapy; Z79.4 Long term (current) use of insulin | CPT/HCPCS: 99214 ==

== ENCOUNTER → 2023-09-07 13:46 | Outpatient (BNVA) | payer MEDICARE, SELFPAY | PROVIDERS: PCP Family Medicine; Visit Provider Internal Medicine Rheumatology | DX: Z79.899 Other long term (current) drug therapy (principal); M45.0 Ankylosing spondylitis of multiple sites in spine; Z71.89 Other specified counseling; M17.0 Bilateral primary osteoarthritis of knee | CPT/HCPCS: 36415; 80076; 82565; 85025; 86140; 99214 ==

== ENCOUNTER → 2023-12-02 09:30 | Outpatient (BNVA) | payer MEDICARE, SELFPAY | PROVIDERS: PCP Family Medicine; Visit Provider Nurse Practitioner Family | DX: L82.1 Other seborrheic keratosis (principal); L82.0 Inflamed seborrheic keratosis; L81.4 Other melanin hyperpigmentation; D22.5 Melanocytic nevi of trunk; L57.8 Other skin changes due to chronic exposure to nonionizing radiation; L40.0 Psoriasis vulgaris; M45.9 Ankylosing spondylitis of unspecified sites in spine; L21.8 Other seborrheic dermatitis; L57.0 Actinic keratosis | CPT/HCPCS: 17000; 17110; 99214 ==

== ENCOUNTER 2023-12-09 08:57 | Outpatient (CLI) | payer MEDICARE, SELFPAY ==
[2023-12-09 09:17] LABS: Basophils % 0.5 %; Eosinophils # 0.2 10^3/uL (0.0-0.8); Eosinophils % 2.8 %; Hematocrit 38.3 % (36-47); Lymphocytes # 1.8 10^3/uL (0.8-4.8); Lymphocytes % 24.5 %; Mean Corpuscular HGB Conc 31.6 g/dL (30-55); Mean Corpuscular Hemoglobin 28.1 pg (27-33); Mean Corpuscular Volume 88.9 fl (85-98); Mean Platelet Volume 11.2 fL (7.4-10.4); Monocytes # 0.8 10^3/uL (0.2-0.9); Monocytes % 10.8 %; Neutrophils # 4.56 10^3/uL (1.8-7.7); Nucleated Red Blood Cells % 0 %; Platelet Count 228 10^3/cmm (157-399); Red Blood Count 4.31 10^6/uL (3.85-5.65); Red Cell Distribution Width 13.8 % (12.1-15.1); White Blood Count 7.48 10^3/uL (3.29-11.43)
[2023-12-09 09:43] LABS: Alanine Aminotransferase 26 U/L (0-33); Alkaline Phosphatase 99 U/L (35-105); Aspartate Amino Transferase 41 U/L (0-32); C Reactive Protein 9.6 mg/L (0.0-4.9); Globulin 4.1 g/dL (1.3-4.6); Glomerular Filtration Rate 55.6 mL/min (90-130); Total Bilirubin 0.3 mg/dL (0.15-1.2); Total Protein 8.1 g/dL (6.6-8.7)
[2023-12-09 10:08] LABS: Creatinine Urine, Random 192 mg/dL (28-217); Microalbum Creatinine Ratio Ur 10 mg/dL (0-20); Microalbumin Random Urine 2 ug/dL (0-20)
== END 2023-12-09 08:58 | disposition home or self-care (01) ==
LOC: LAB 08:59
PROVIDERS: Internal Medicine Rheumatology; PCP Family Medicine; Visit Provider Internal Medicine
DX: Z79.899 Other long term (current) drug therapy (principal); E11.9 Type 2 diabetes mellitus without complications; Z79.4 Long term (current) use of insulin
CPT/HCPCS: 36415; 80076; 82044; 82565; 85025; 86140

== ENCOUNTER → 2023-12-12 09:32 | Outpatient (BNVA) | payer MEDICARE, SELFPAY | PROVIDERS: PCP Family Medicine; Visit Provider Internal Medicine | DX: E03.9 Hypothyroidism, unspecified (principal); E78.49 Other hyperlipidemia; Z79.4 Long term (current) use of insulin; N39.0 Urinary tract infection, site not specified; Z78.9 Other specified health status; E11.65 Type 2 diabetes mellitus with hyperglycemia; Z79.890 Hormone replacement therapy | CPT/HCPCS: 99214 ==

== ENCOUNTER → 2023-12-13 11:38 | Outpatient (BNVA) | payer MEDICARE, SELFPAY | PROVIDERS: PCP Family Medicine; Visit Provider Family Medicine | DX: I10 Essential (primary) hypertension (principal); E78.2 Mixed hyperlipidemia; E03.9 Hypothyroidism, unspecified; E11.9 Type 2 diabetes mellitus without complications; Z79.899 Other long term (current) drug therapy | CPT/HCPCS: 80053; 80061; 83036; 84443 ==

== ENCOUNTER → 2024-02-23 08:14 | Outpatient (BNVA) | payer MEDICARE, SELFPAY | PROVIDERS: PCP Family Medicine; Visit Provider Internal Medicine | DX: E11.40 Type 2 diabetes mellitus with diabetic neuropathy, unspecified (principal); E03.9 Hypothyroidism, unspecified; E78.2 Mixed hyperlipidemia; N39.0 Urinary tract infection, site not specified; Z78.9 Other specified health status; Z79.4 Long term (current) use of insulin | CPT/HCPCS: 99214 ==

== ENCOUNTER 2024-02-29 13:08 | Outpatient (CLI) | payer MEDICARE, SELFPAY ==
[2024-02-29 13:58] LABS: Estmated Average Glucose 235; Hemoglobin A1C 9.8 % (4.0-6.0)
[2024-02-29 14:08] LABS: Alanine Aminotransferase 19 U/L (0-33); Albumin Level 3.8 g/dL (3.5-5.2); Alkaline Phosphatase 83 U/L (35-105); Anion Gap 16.2 (5-19); Aspartate Amino Transferase 29 U/L (0-32); Blood Urea Nitrogen 20 mg/dL (8-23); Calcium 8.3 mg/dL (8.5-10.5); Carbon Dioxide 24 mmol/L (22-29); Chloride 97 mmol/L (98-107); Chol HDL Ratio 3.91 mg/dL (0.0-4.40); Cholesterol 168 mg/dL (0-200); Globulin 3.1 g/dL (1.3-4.6); Glomerular Filtration Rate 45.1 mL/min (90-130); Glucose 316 mg/dL (65-115); HDL Cholesterol 43 mg/dL (60-100); LDL Cholesterol Calculated 94 mg/dL (50-129); LDL HDL Ratio 2.19 RATIO (0.00-3.22); Osmolality Calculated 291 mOsm/kg (285-295); Potassium 4.2 mmol/L (3.5-5.1); Sodium 133 mmol/L (136-145); Total Bilirubin 0.3 mg/dL (0.15-1.2); Total Protein 6.9 g/dL (6.6-8.7); Triglycerides 153 mg/dL (0-150)
[2024-02-29 14:29] LABS: Creatinine Urine, Random 217 mg/dL (28-217); Microalbumin Random Urine 39 ug/dL (0-20)
[2024-02-29 14:30] LABS: Microalbum Creatinine Ratio Ur 180 mg/dL (0-20)
[2024-03-01 08:09] LABS: C-Peptide 4.39 ng/mL (0.80-3.85)
== END 2024-02-29 13:09 | disposition home or self-care (01) ==
LOC: LAB 13:09
PROVIDERS: PCP Family Medicine; Visit Provider Internal Medicine
DX: E11.9 Type 2 diabetes mellitus without complications (principal); Z79.4 Long term (current) use of insulin; E78.49 Other hyperlipidemia
CPT/HCPCS: 36415; 80053; 80061; 82044; 83036; 84681; 86337; 86341

== ENCOUNTER → 2024-03-14 14:08 | Outpatient (BNVA) | payer MEDICARE, SELFPAY | PROVIDERS: PCP Family Medicine; Visit Provider Internal Medicine Rheumatology | DX: Z79.899 Other long term (current) drug therapy (principal); M45.0 Ankylosing spondylitis of multiple sites in spine; Z71.89 Other specified counseling; M17.0 Bilateral primary osteoarthritis of knee | CPT/HCPCS: 99214 ==

== ENCOUNTER 2024-06-11 15:15 | Outpatient (CLI) | payer MEDICARE, SELFPAY ==
--- NOTE | 2024-06-11 15:19 | XRR_ITS ---
PROCEDURE INFORMATION: Exam: XR Thoracic Spine Exam date and time: 06/11/2024 3:42 PM Age: 64 years old Clinical indication: Injury or trauma; Blunt trauma (contusions or hematomas); Injury date: 06/11/24; Injury details: PT fell this morning, worsening neck and mid back pain since, PT very kyphotic upon arrival and stated the fall made it harder to stand up straight; Additional info: Neck pain TECHNIQUE: Imaging protocol: Radiologic exam of the thoracic spine. Views: 3 views. COMPARISON: CR XR cervical spine 3V* [id number] 06/11/2024 3:42 PM FINDINGS: Bones/joints: There is pronounced kyphosis. Limited visualization of the upper thoracic vertebrae, no fractures noted in the rest of the visualized thoracic spine. Soft tissues: Unremarkable. Lungs: Visualized lungs are unremarkable. Vasculature: Vascular calcification. XR/XR thoracic spine 2V [id number] IMPRESSION: Limited visualization of the upper thoracic vertebrae, no fractures noted in the visualized thoracic spine.
--- NOTE | 2024-06-11 15:19 | XRR_ITS ---
PROCEDURE INFORMATION: Exam: XR Cervical Spine Exam date and time: 06/11/2024 3:42 PM Age: 64 years old Clinical indication: Injury or trauma; Blunt trauma; Injury date: 06/11/24; Injury details: PT fell this morning, worsening neck and mid back pain since, PT very kyphotic upon arrival and stated the fall made it harder to stand up straight; HX of breast cancer; Additional info: Neck pain TECHNIQUE: Imaging protocol: Radiologic exam of the cervical spine. Views: 2 or 3 views. COMPARISON: CR XR thoracic spine 2V [id number] 06/11/2024 3:42 PM FINDINGS: Bones/joints: Study is limited as the C7-T1 junction is not visualized, cervical spine is visualized to the C6-C7 space. There are no fractures or dislocations noted in the visualized cervical spine. Soft tissues: Unremarkable. XR/XR cervical spine 3V* [id number] IMPRESSION: Limited study with nonvisualization of the C7-T1 level. No fractures or dislocations noted .
== END 2024-06-11 15:16 | disposition home or self-care (01) ==
LOC: RAD 15:16
PROVIDERS: PCP Family Medicine; Visit Provider Family Medicine
DX: M54.2 Cervicalgia (principal); M40.294 Other kyphosis, thoracic region; R93.89 Abnormal findings on diagnostic imaging of other specified body structures; W19.XXXA Unspecified fall, initial encounter; Z85.3 Personal history of malignant neoplasm of breast
CPT/HCPCS: 72040; 72070

== ENCOUNTER → 2024-06-13 11:06 | Outpatient (BNVA) | payer MEDICARE, SELFPAY | PROVIDERS: PCP Family Medicine; Visit Provider Internal Medicine | DX: E11.9 Type 2 diabetes mellitus without complications (principal); Z79.899 Other long term (current) drug therapy; Z79.4 Long term (current) use of insulin; E03.9 Hypothyroidism, unspecified; E78.2 Mixed hyperlipidemia; N39.0 Urinary tract infection, site not specified; Z78.9 Other specified health status; E11.40 Type 2 diabetes mellitus with diabetic neuropathy, unspecified | CPT/HCPCS: 99214 ==

== ENCOUNTER → 2024-09-10 12:40 | Outpatient (BNVA) | payer MEDICARE, SELFPAY | PROVIDERS: PCP Family Medicine; Visit Provider Internal Medicine | DX: Z79.899 Other long term (current) drug therapy (principal); E78.49 Other hyperlipidemia; Z78.9 Other specified health status; E03.9 Hypothyroidism, unspecified; E78.2 Mixed hyperlipidemia; N39.0 Urinary tract infection, site not specified; E11.40 Type 2 diabetes mellitus with diabetic neuropathy, unspecified | CPT/HCPCS: 36415; 80053; 80061; 82044; 83036; 84439; 84443 ==

== ENCOUNTER → 2024-09-19 13:51 | Outpatient (BNVA) | payer MEDICARE, SELFPAY | PROVIDERS: PCP Family Medicine; Visit Provider Internal Medicine Rheumatology | DX: M45.0 Ankylosing spondylitis of multiple sites in spine (principal); Z71.89 Other specified counseling; Z79.899 Other long term (current) drug therapy; M17.0 Bilateral primary osteoarthritis of knee | CPT/HCPCS: 99214 ==

== ENCOUNTER → 2024-11-28 15:23 | Outpatient (BNVA) | payer MEDICARE, SELFPAY | PROVIDERS: PCP Family Medicine; Visit Provider Nurse Practitioner Family | DX: D22.5 Melanocytic nevi of trunk (principal); L40.0 Psoriasis vulgaris; Z79.899 Other long term (current) drug therapy; M45.9 Ankylosing spondylitis of unspecified sites in spine; L57.8 Other skin changes due to chronic exposure to nonionizing radiation; L81.4 Other melanin hyperpigmentation; L82.1 Other seborrheic keratosis; D48.5 Neoplasm of uncertain behavior of skin | CPT/HCPCS: 11102; 99213 ==

== ENCOUNTER → 2024-12-10 11:29 | Outpatient (BNVA) | payer MEDICARE, SELFPAY | PROVIDERS: PCP Family Medicine; Visit Provider Internal Medicine | DX: Z79.899 Other long term (current) drug therapy (principal); E11.40 Type 2 diabetes mellitus with diabetic neuropathy, unspecified; E03.9 Hypothyroidism, unspecified; E78.2 Mixed hyperlipidemia | CPT/HCPCS: 99214 ==

== ENCOUNTER → 2024-12-31 14:49 | Outpatient (BNVA) | payer MEDICARE, SELFPAY | PROVIDERS: PCP Family Medicine; Visit Provider Family Medicine | DX: N39.0 Urinary tract infection, site not specified (principal); Z79.899 Other long term (current) drug therapy | CPT/HCPCS: 81000; 87086 ==

== ENCOUNTER → 2025-02-06 12:48 | Outpatient (BNVA) | payer MEDICARE, SELFPAY | PROVIDERS: PCP Family Medicine; Visit Provider Internal Medicine Rheumatology | DX: M45.0 Ankylosing spondylitis of multiple sites in spine (principal); Z71.85 Encounter for immunization safety counseling; Z79.899 Other long term (current) drug therapy; M19.90 Unspecified osteoarthritis, unspecified site; M17.0 Bilateral primary osteoarthritis of knee; F11.20 Opioid dependence, uncomplicated | CPT/HCPCS: 99214 ==